=== PATIENT | male | born 1965 | race Caucasian/White ===

== ENCOUNTER 2022-09-25 08:37 | Emergency (ER) | payer BC, SELFPAY ==
[2022-09-25] VITALS (26 sets, daily range): BP systolic 151–214; BP diastolic 90–127; PULSE 72–93; RESP 18; TEMP 36.1; O2SAT 91–94; BMI 32.1
--- NOTE | 2022-09-25 09:11 | ED.DIZZY ---
HPI - Dizziness General Time Seen by Provider: 09:11 Date Seen: 09/25/22 Chief Complaint: Dizziness/Vertigo Stated Complaint: vertigo Time Seen by Provider: 09/25/22 09:11 Source: patient, RN notes reviewed and old records reviewed Mode of arrival: ambulatory Limitations: no limitations Related Data Home Medications Medication Instructions Recorded Confirmed amlodipine 10 mg tablet 10 mg PO DAILY 09/25/22 09/25/22 atorvastatin 40 mg tablet 40 mg PO DAILY 09/25/22 09/25/22 metoprolol succinate 50 mg 50 mg PO DAILY 09/25/22 09/25/22 tablet,extended release 24 hr Previous Rx's Medication Instructions Recorded meclizine 12.5 mg tablet 12.5 mg PO TID PRN #30 tabs 09/25/22 Allergies Allergy/AdvReac Type Severity Reaction Status Date / Time No Known Drug Allergies Allergy Verified 09/25/22 08:48 PFSH PFSH Social History Smoking Status: Unknown if ever smoked Do you use any of these nicotine containing products: None How often do you have a drink containing alcohol: 2-4 times a month AUDIT-C Alcohol total score: 2 Exam Const: Vital Signs, click to edit/add: Vital Signs - 24 hr 09/25/22 08:45 09/25/22 09:54 09/25/22 09:55 Temperature 97.0 F L Pulse Rate 85 82 Pulse Rate [Right Pulse Oximeter] 93 Respiratory Rate 18 Blood Pressure 191/111 H Blood Pressure [Ri ght Upper Arm] 161/102 H Pulse Oximetry 94 94 94 Oxygen Delivery Me thod Room Air 09/25/22 10:00 09/25/22 10:02 09/25/22 10:07 Temperature Pulse Rate 85 86 79 Pulse Rate [Right Pulse Oximeter] Respiratory Rate Blood Pressure 196/118 H 180/100 H Blood Pressure [Ri ght Upper Arm] Pulse Oximetry 93 93 92 Oxygen Delivery Me thod 09/25/22 10:15 09/25/22 10:17 09/25/22 10:23 Temperature Pulse Rate 85 82 83 Pulse Rate [Right Pulse Oximeter] Respiratory Rate Blood Pressure 214/127 H 185/91 H Blood Pressure [Ri ght Upper Arm] Pulse Oximetry 92 93 94 Oxygen Delivery Me thod 09/25/22 10:30 09/25/22 10:32 09/25/22 10:45 Temperature Pulse Rate 84 72 75 Pulse Rate [Right Pulse Oximeter] Respiratory Rate Blood Pressure 172/96 H Blood Pressure [Ri ght Upper Arm] Pulse Oximetry 93 93 91 Oxygen Delivery Me thod 09/25/22 10:47 09/25/22 10:48 09/25/22 11:35 Temperature Pulse Rate 74 82 88 Pulse Rate [Right Pulse Oximeter] Respiratory Rate Blood Pressure 179/96 H Blood Pressure [Ri ght Upper Arm] Pulse Oximetry 92 91 92 Oxygen Delivery Me thod 09/25/22 11:45 09/25/22 11:47 09/25/22 11:48 Temperature Pulse Rate 77 80 86 Pulse Rate [Right Pulse Oximeter] Respiratory Rate Blood Pressure 183/115 H Blood Pressure [Ri ght Upper Arm] Pulse Oximetry 92 92 92 Oxygen Delivery Me thod 09/25/22 12:00 09/25/22 12:02 09/25/22 12:15 Temperature Pulse Rate 92 87 92 Pulse Rate [Right Pulse Oximeter] Respiratory Rate Blood Pressure 151/90 H Blood Pressure [Ri ght Upper Arm] Pulse Oximetry 93 93 93 Oxygen Delivery Me thod 09/25/22 12:16 09/25/22 12:30 09/25/22 12:32 Temperature Pulse Rate 90 91 90 Pulse Rate [Right Pulse Oximeter] Respiratory Rate Blood Pressure 155/96 H 151/93 H Blood Pressure [Ri ght Upper Arm] Pulse Oximetry 93 92 92 Oxygen Delivery Me thod 09/25/22 12:45 09/25/22 12:47 Temperature Pulse Rate 90 90 Pulse Rate [Right Pulse Oximeter] Respiratory Rate Blood Pressure 163/99 H Blood Pressure [Ri ght Upper Arm] Pulse Oximetry 94 93 Oxygen Delivery Me thod Course Reevaluation(s) Reevaluation #1: My colleague received a call at approximately [address] was negative. Patient returns to his room and Hallpike maneuver is negative with no evidence of nystagmus or induced vertigo. Patient states that he is tired but he has had resolution of his symptoms. Feels that he is walking normally again. I spoke to neurologist and patient feels that his symptoms have resolved as his exam is reassuring as well. He is fatigued at this time. MRI MRA of brain suggested and is pending. Reevaluation #2: Patient noted to have slight return of dizziness and associated with a blood pressure of greater than 200/115. Ativan 0.5 mg IV is given and patient has resolution of symptoms as well as reduction of blood pressure to 185 systolic. Will continue to monitor. Aspirin 325 mg p.o. given Reevaluation #3: Patient is fatigued but continues to do well. Blood pressure continues to come down. Vital Signs Vital signs: Initial Vital Signs Temperature 97.0 F L 09/25/22 08:45 Temperature Source Temporal Artery Scan 09/25/22 08:45 Pulse Rate 93 09/25/22 08:45 Respiratory Rate 18 09/25/22 08:45 Blood Pressure 161/102 H 09/25/22 08:45 Blood Pressure Mean 121 H 09/25/22 08:45 Blood Pressure Position Sitting 09/25/22 08:45 Pulse Oximetry 94 09/25/22 08:45 Oxygen Delivery Method Room Air 09/25/22 08:45 Vital Signs Temperature 97.0 F L 09/25/22 08:45 Pulse Rate 93 09/25/22 08:45 Respiratory Rate 18 09/25/22 08:45 Blood Pressure 161/102 H 09/25/22 08:45 Pulse Oximetry 94 09/25/22 08:45 Oxygen Delivery Method Room Air 09/25/22 08:45 Temperature 97.0 F L 09/25/22 08:45 Pulse Rate 90 09/25/22 12:47 Respiratory Rate 18 09/25/22 08:45 Blood Pressure 163/99 H 09/25/22 12:47 Pulse Oximetry 93 09/25/22 12:47 Oxygen Delivery Method Room Air 09/25/22 08:45 MDM - Dizziness MDM Narrative Medical decision making narrative: 1. Dizziness with vomiting-CT/CTA and MRI/MRA showed no evidence of a stroke. Patient had improvement of his symptoms prior to his arrival. What was described as a wide-based gait and difficulty with vision had since resolved. Symptoms mildly present at 645 in the shower but intensified at approximately 0730 with persisting symptoms for approximately an hour. Fortunately is a have resolved. Patient did receive aspirin. I suspect this may have been TIA but certainly inner ear dysfunction is a possibility. I was able to consult with , [facility] during the patient's stay in the ED. at this time he will be discharged from the ER but given that he is high risk for future stroke, cardiac disease with tobacco use, hypertension and hyperlipidemia do suggest starting baby aspirin daily. Meclizine 12.5 mg to be use as needed also sent to the pharmacy. Patient is to return for worsening symptoms. 2. Hypertension -blood pressure did come down but not to text perk normal values. Patient has just had some changes of his medications. Currently he takes metoprolol and amlodipine. I would suggest follow-up with his primary MD later in this week and during the interim to take blood pressure checks. He may need a 3rd medication verses changes and what he is currently on. 3. Disposition-home at this time. Return for worsening symptoms. Dictation done with voice recognition, and as a result, wrong word or [id number] substitutions may have occurred.? There may be errors in the script that have gone undetected.? Please consider this when interpreting information found in this chart. Medical Records Attestation: I reviewed the patient's medical records. Lab Data Attestation: I reviewed the patient's lab results. Labs: Lab Results 09/25/22 09/25/22 Range/Units 09:40 12:00 WBC 7.35 (4.50-11.00) K/uL RBC 5.13 (4.30-5.90) m/uL Hgb 16.3 (13.5-17.5) gm/dL Hct 49.2 (37.0-53.0) % MCV 96 (80-100) fL MCH 32 (26-34) pg MCHC 33 (32-36) gm/dL RDW Coeff of Amelia 12.5 (11.5-15.5) % Plt Count 252 (140-440) K/uL Neut % (Auto) 80.6 H (42.0-72.0) % Lymph % (Auto) 9.9 L (20-44) % [place] % (Auto) 6.5 (0.0-11.0) % Eos % (Auto) 2.2 (0.0-7.0) % Baso % (Auto) 0.5 (0.0-3.0) % Neut # (Auto) 5.90 (1.7-7.0) K/uL Lymph # (Auto) 0.70 L (0.90-2.90) K/uL [place] # (Auto) 0.50 (0.00-0.90) K/UL Eos # (Auto) 0.16 (0.00-0.50) K/uL Baso # (Auto) 0.04 (0.00-0.30) K/uL Sodium 140 (135-149) mmol/L Potassium 4.0 (3.6-5.1) mmol/L Chloride 104 (96-114) mmol/L Carbon Dioxide 27 (20-32) mmol/L BUN 10 (7-30) mg/dL Creatinine 0.8 (0.5-1.5) mg/dL Estimated Creat Clear 111.12 Estimated GFR 105 ml/min Glucose 139 H (60-115) mg/dL Calcium 8.6 (8.4-10.6) mg/dL Total Bilirubin 0.4 (0.1-1.5) mg/dL AST 25 (12-35) U/L ALT 32 (4-50) U/L Alkaline Phosphatase 86 (40-150) U/L Total Protein 7.4 (6.0-8.3) g/dL Albumin 4.3 (3.3-5.0) g/dL POC Troponin I 0.00 L 0.00 L (0.01-0.04) ng/ml Imaging Data CT scan - head: Attestation: I have reviewed the pertinent imaging results. My impression: Do not note any evidence of bleeding. Radiologist's impression: Brain parenchyma: No intracranial bleed or mass effect. Roper-white differentiation is distinct. Small amount of low density in the deep white matter. Skull base and calvarium: The visualized paranasal sinuses and mastoid air cells demonstrate no acute or significant findings.? The visualized orbits are grossly unremarkable.? No skull fractures. Atherosclerosis. IMPRESSION: 1. No intracranial bleed or mass effect. 2. Mild nonspecific white matter disease, likely microangiopathy. CTA Head/Neck: Attestation: I have reviewed the pertinent imaging results. Radiologist's impression: There is scattered intracranial atherosclerotic disease. There is normal opacification of the intracranial vasculature. There is no large vessel occlusion. No aneurysm is identified. IMPRESSION: No large vessel occlusion. here is minor carotid atherosclerosis. There is no significant carotid artery stenosis or dissection. There is no significant vertebral artery stenosis or dissection. The soft tissues of the neck are within normal limits. The cervical spine is in normal alignment. Degenerative changes are noted in the cervical spine. IMPRESSION: No significant carotid or vertebral artery stenosis or dissection. MR Brain: Attestation: I have reviewed the pertinent imaging results. Radiologist's impression: The ventricles and sulci are within normal limits for patient age. No mass effect or midline shift. Scattered FLAIR hyperintensities in the supratentorial white matter are nonspecific. No diffusion restriction to suggest acute infarction. No intracranial hemorrhage or pathologic extra-axial fluid collection. The major arterial flow voids of the skullbase are preserved. The globes are symmetric. Minimal ethmoid sinus mucosal thickening. The mastoid air cells are clear. IMPRESSION: 1. No acute infarction, mass effect, or intracranial hemorrhage. 2. Scattered FLAIR hyperintensities in the supratentorial white matter are nonspecific, though most typical for sequelae of mild chronic microvascular ischemic changes or migraine headaches. ECG Data Attestation: I personally reviewed and interpreted this ECG as follows: ECG interpretation date: 09/25/22 Interpretation: EKG by my read shows sinus rhythm at a rate of 85. No acute ST or T-wave changes are noted. EKG 2. By my read shows sinus rhythm at a rate of 81. No acute ST or T-wave changes. Discharge Plan Discharge Clinical Impression: Dizziness, Hypertension Patient Disposition: Home, Self-Care Additional Instructions: Use baby aspirin or 81 mg daily. Smoking cessation is suggested strongly. Return to the emergency room for worsening symptoms. Meclizine may be used as needed for dizziness. Prescriptions: New meclizine 12.5 mg tablet 12.5 mg PO TID PRNQty: 30 0RF No Action atorvastatin 40 mg tablet 40 mg PO DAILY metoprolol succinate 50 mg tablet extended release 24 hr 50 mg PO DAILY amlodipine 10 mg tablet 10 mg PO DAILY Follow Up/Referrals: Elmer Humphrey MD [Staff Physician] - Stand Alone Forms: [facility] Info Instructions
--- NOTE | 2022-09-25 09:20 | CRLHL7_ITS ---
For Patients: As a result of the Century Cures Act, medical imaging exams and procedure reports are released immediately into your electronic medical record. You may view this report before your referring provider. If you have questions, please contact your health care provider. INDICATION: Vertigo, nausea and vomiting TECHNIQUE: CT head without contrast. COMPARISON: None. FINDINGS: CSF spaces: Within normal limits for age. Brain parenchyma: No intracranial bleed or mass effect. Roper-white differentiation is distinct. Small amount of low density in the deep white matter. Skull base and calvarium: The visualized paranasal sinuses and mastoid air cells demonstrate no acute or significant findings. The visualized orbits are grossly unremarkable. No skull fractures. Atherosclerosis. IMPRESSION: 1. No intracranial bleed or mass effect. 2. Mild nonspecific white matter disease, likely microangiopathy. Results called to Dr. Tai at 0945 on 09/25/2022 Please note that all CT scans at this facility use dose modulation, iterative reconstruction, and/or weight-based dosing when appropriate to reduce radiation dose to as low as reasonably achievable. Dictated by Lavell Bardales MD @ 09/25/2022 9:46:52 AM (Electronically Signed)
--- NOTE | 2022-09-25 09:29 | CRLHL7_ITS ---
For Patients: As a result of the Century Cures Act, medical imaging exams and procedure reports are released immediately into your electronic medical record. You may view this report before your referring provider. If you have questions, please contact your health care provider. INDICATION: Vertigo, nausea and vomiting. TECHNIQUE: CTA neck with contrast bolus tracking, 3D angiographic rendering using maximum intensity projection (MIP). FINDINGS: There is minor carotid atherosclerosis. There is no significant carotid artery stenosis or dissection. There is no significant vertebral artery stenosis or dissection. The soft tissues of the neck are within normal limits. The cervical spine is in normal alignment. Degenerative changes are noted in the cervical spine. IMPRESSION: No significant carotid or vertebral artery stenosis or dissection. Please note that all CT scans at this facility use dose modulation, iterative reconstruction, and/or weight-based dosing when appropriate to reduce radiation dose to as low as reasonably achievable. Dictated by Joaquin Nieto MD @ 09/25/2022 10:38:37 AM (Electronically Signed)
--- NOTE | 2022-09-25 09:29 | CRLHL7_ITS ---
For Patients: As a result of the Century Cures Act, medical imaging exams and procedure reports are released immediately into your electronic medical record. You may view this report before your referring provider. If you have questions, please contact your health care provider. INDICATION: Vertigo, nausea and vomiting. TECHNIQUE: CTA head with contrast bolus tracking, 3D angiographic rendering using maximum intensity projection (MIP). FINDINGS: There is scattered intracranial atherosclerotic disease. There is normal opacification of the intracranial vasculature. There is no large vessel occlusion. No aneurysm is identified. IMPRESSION: No large vessel occlusion. Please note that all CT scans at this facility use dose modulation, iterative reconstruction, and/or weight-based dosing when appropriate to reduce radiation dose to as low as reasonably achievable. Dictated by Joaquin Nieto MD @ 09/25/2022 10:37:04 AM (Electronically Signed)
[2022-09-25 10:11] LABS: Basophils Absolute Auto 0.04 K/uL (0.00-0.30); Basophils Percent Auto 0.5 % (0.0-3.0); Eosinophils Absolute Auto 0.16 K/uL (0.00-0.50); Eosinophils Percent Auto 2.2 % (0.0-7.0); Hematocrit 49.2 % (37.0-53.0); Hemoglobin* 16.3 gm/dL (13.5-17.5); Immature Granulocytes Abs Auto 0.02 K/uL (0.00-0.30); Immature Granulocytes Pct Auto 0.3 %; Lymphocytes Percent Auto 9.9 % (20-44); Mean Corpuscular HGB Conc 33 gm/dL (32-36); Mean Corpuscular Hemoglobin 32 pg (26-34); Mean Corpuscular Volume 96 fL (80-100); Monocytes Percent Auto 6.5 % (0.0-11.0); Neutrophils Percent Auto 80.6 % (42.0-72.0); Platelet Count* 252 K/uL (140-440); RDW Coefficient of Variation % 12.5 % (11.5-15.5); Red Blood Count 5.13 m/uL (4.30-5.90); White Blood Count* 7.35 K/uL (4.50-11.00)
[2022-09-25 10:12] LABS: Albumin* 4.3 g/dL (3.3-5.0); Chloride* 104 mmol/L (96-114); Slide Review Reflex No; Sodium* 140 mmol/L (135-149)
[2022-09-25 10:14] LABS: Bilirubin Total* 0.4 mg/dL (0.1-1.5); Carbon Dioxide* 27 mmol/L (20-32); Creatinine* 0.8 mg/dL (0.5-1.5); Est. Creatinine Clearance* 111.12; Estimated Glomerular Filt Rate 105 ml/min
[2022-09-25 10:15] LABS: Alanine Aminotransferase* 32 U/L (4-50); Alkaline Phosphatase* 86 U/L (40-150); Aspartate Amino Transferase* 25 U/L (12-35); Blood Urea Nitrogen* 10 mg/dL (7-30); Calcium* 8.6 mg/dL (8.4-10.6); Glucose* 139 mg/dL (60-115); Total Protein* 7.4 g/dL (6.0-8.3)
[2022-09-25] MEDS: LORazepam 2 MG/ML inj 0.5 MG IVP (10:17)
--- NOTE | 2022-09-25 10:17 | CRLHL7_ITS ---
For Patients: As a result of the Century Cures Act, medical imaging exams and procedure reports are released immediately into your electronic medical record. You may view this report before your referring provider. If you have questions, please contact your health care provider. INDICATION: Dizziness. TECHNIQUE: Multiplanar multisequence noncontrast MR images acquired through the brain. COMPARISON: CT brain 09/25/2022. FINDINGS: The ventricles and sulci are within normal limits for patient age. No mass effect or midline shift. Scattered FLAIR hyperintensities in the supratentorial white matter are nonspecific. No diffusion restriction to suggest acute infarction. No intracranial hemorrhage or pathologic extra-axial fluid collection. The major arterial flow voids of the skullbase are preserved. The globes are symmetric. Minimal ethmoid sinus mucosal thickening. The mastoid air cells are clear. IMPRESSION: 1. No acute infarction, mass effect, or intracranial hemorrhage. 2. Scattered FLAIR hyperintensities in the supratentorial white matter are nonspecific, though most typical for sequelae of mild chronic microvascular ischemic changes or migraine headaches. Dictated by Odell Bello MD @ 09/25/2022 11:35:50 AM (Electronically Signed)
[2022-09-25] MEDS: ASPIRIN 81 MG TAB.CHEW 324 MG PO (10:18)
== END 2022-09-25 12:58 | disposition home or self-care (01) ==
PROVIDERS: Emergency Provider Family Medicine; PCP Physician Assistant
DX: R42 Dizziness and giddiness (principal); I10 Essential (primary) hypertension
CPT/HCPCS: 36415; 70450; 70496; 70498; 70551; 80053; 84484; 85025; 93005; 96374; 99284; 99285; A9270; J2060; Q9967

== ENCOUNTER 2023-02-09 08:02 | Day surgery (SDC) | payer BC, SELFPAY ==
[2023-02-09] VITALS (13 sets, daily range): BP systolic 94–127; BP diastolic 67–82; PULSE 63–83; RESP 16–20; TEMP 36.1–36.8; O2SAT 88–94; BMI 32.1
[2023-02-09] MEDS: LACTATED RINGERS 1000 ML 1,000 ML 100 ML IV ×2 (08:05→12:00)
[2023-02-09] MEDS: SODIUM CHLORIDE 0.9 % (FLUSH) 10 ML SYRINGE IVF (08:42)
--- NOTE | 2023-02-09 09:17 | P.ORPRC_ITS ---
Procedure Note Date of procedure: 02/09/23 Procedure: PREOPERATIVE DIAGNOSES: 1. Left ankle lateral malleolus fracture 2. Left ankle posterior malleolus fracture POSTOPERATIVE DIAGNOSES: 1. Left ankle lateral malleolus fracture 2. Left ankle posterior malleolus fracture PROCEDURE: 1. Left ankle lateral malleolus open reduction with internal fixation. 2. Intraoperative fluoroscopy <53 minutes (CPT CODE 7600) SURGEON: Murphy Son MD SWIMMING TEACHER: Jorge OBRIEN; Of note, an computer assistant was critical for this case to aide in patient positioning, leg manipulation, tissue retraction, closure, and splinting. ANESTHESIA: Spinal with popliteal nerve block IMPLANTS: Arthrex 4 hole distal fibular locking plate with 2.5 mm distal locking screws and 3.5 mm cortical screws. TOURNIQUET: 32 minutes at 250 mmHg. INDICATIONS: The patient is a pleasant 57-year-old male who sustained a left ankle injury in the recent past with difficulty bearing weight. Workup included x-rays which revealed an unstable ankle fracture. Given these findings, surgery was recommended to stablize the ankle. FINDINGS: Closed, displaced, unstable, Ahumada B distal fibula fracture. Minimally displaced posterior malleolus fracture. Intact syndesmosis.. PROCEDURE: Following a thorough discussion of risks, benefits, and alternatives, consent was obtained and the operative extremity was marked. A popliteal nerve was performed by anesthesia staff. The patient was brought to the operating room and and spinal anesthesia was administered. He was then placed supine on the operating table. 2 g IV Ancef was administered within 1 hour of incision preoperatively. The left lower extremity was prepped and draped in the appropriate sterile fashion using ChloraPrep prep. A surgical time-out was performed confirming patient identity, surgical site, and surgical procedure. The operative extremity was elevated and exsanguinated, and the tourniquet inflated to 250 mm Hg. A longitudinal incision was made overlying the distal fibula. Sharp incision was carried through skin and subcutaneous tissue. Superficial peroneal nerve was identified exiting the fascia and was protected throughout the course of the procedure. The fracture was identified, and cleared of interposed p eriosteum and fracture hematoma. The surgical site was thoroughly irrigated with normal saline. The fracture was reduced and temporarily held with reduction clamps. An Arthrex distal fibular locking plate was selected and held provisionally with a BB [place]. After confirming appropriate reduction/positioning on C-arm fluoroscopic imaging, the fracture was stabilized with the plate. Unicortical locking screws were placed distal to the fracture site and 3 bicortical 3.5 mm screws were placed proximal to the fracture site through the plate. Fluoroscopy was utilized for confirmation of screw length / positioning. After the fracture was stabilized with a plate and screws, an external stress test was performed and syndesmosis was confirmed to be intact. At this stage, the wound was thoroughly irrigated with normal saline. Deep subcutaenous tissues were closed over the plate with #0 Vicryl. The tourniquet was deflated. Total tourniquet time was 32 minutes. Hemostasis achieved with electrocautery. Subcutaneous tissues were closed with 2-0 Vicryl for the subcutaneous tissues, and 4-0 stratafix for subcuticular layers completed the closure. Exofin was applied, dressings were applied, and a bulky Oh splint was applied. The patient was awoken from anesthesia and transferred to the PACU in stable condition. PLAN: 1. Elevate operative extremity. 2. Encourage ice. 3. Tylenol and oxycodone as needed for pain control. 4. Follow up in orthopedic clinic in 2 weeks for splint removal and wound check. 5. Toe touch weight-bearing operative extremity. 6. Discharge to home.
--- NOTE | 2023-02-09 09:17 | W.PM.H&PU ---
History & Physical Update History & Physical Update H&P Reviewed and patient assessed: No changes noted
--- NOTE | 2023-02-09 10:00 | CRLHL7_ITS ---
For Patients: As a result of the Cures Act, medical imaging exams and procedure reports are released immediately into your electronic medical record. You may view this report before your referring provider. If you have questions, please contact your health care provider. Indication: LT ANKLE ORIF Technique: 4 fluoroscopic images of the left ankle. Fluoroscopic time 9.0 seconds. IMPRESSION: Fluoroscopic guidance of ORIF distal fibular fracture. Dictated by Aneudy Mcclure MD @ 02/09/2023 12:27:31 PM (Electronically Signed)
[2023-02-09] MEDS: MIDAZOLAM HCL 1 MG/ML inj IVP (10:10)
[2023-02-09] MEDS: fentaNYL 100 MCG/2 ML inj IVP (10:10)
--- NOTE | 2023-02-09 10:15 | SUR.PREOP ---
TIME?OUT:?1009 PT/Jaqui Dooley RN/Dr. Trevor MDA?VERIFICATION?OF?SURGICAL?SITE left ankle,?PROCEDURE,?AND?CONSENT OBTAINED?PRIOR?TO?INVASIVE?PROCEDURE.
--- NOTE | 2023-02-09 10:31 | W.PM.NB ---
Nerve Block Nerve Block Time Seen by Provider: 10:10 Date Seen: 02/09/23 Type of block requested by surgeon for post-operative analgesia: popliteal Side: left Time out performed: Yes Verification of patient name: Yes Verification of date of : Yes Site marking: site marked Name of person performing procedure: Trevor Continuous monitoring Was continuous monitoring of O2 sat, B/P, bus driver/monitor, recorded every 15 minutes?: Yes Procedure Checklist: sterile prep, needles and gloves Ultrasound guided. Images saved: Yes Medications given in 5ml increments after negative aspiration: Ropivicaine %: 0.5 mL: 20 Needle gauge: 22 Patient tolerated procedure well: Yes Additional comments: Needle noted adjacent to nerve Block Charges Block Charge (with Pro Fee): Sciatic Nerve Use of Ultrasound Machine for Block: Yes- US Guidance/pain block
--- NOTE | 2023-02-09 10:32 | W.ANESCHARGE ---
Anesthesia Charges Start Date/Time Anesthesia Start Date: 02/09/23 Anesthesia Start Time: 11:04 Stop Date/Time Anesthesia Stop Date: 02/09/23 Anesthesia Stop Time: 12:41
[2023-02-09] MEDS: CEFAZOLIN 2 GM INJ IVP (11:26)
--- NOTE | 2023-02-09 12:11 | W.ANESCHARGE ---
Anesthesia Charges Start Date/Time Anesthesia Start Date: 02/09/23 Anesthesia Start Time: 11:04 Stop Date/Time Anesthesia Stop Date: 02/09/23
--- NOTE | 2023-02-09 12:44 | W.ANESCHARGE ---
Anesthesia Charges Start Date/Time Anesthesia Start Date: 02/09/23 Anesthesia Start Time: 11:04 Stop Date/Time Anesthesia Stop Date: 02/09/23 Anesthesia Stop Time: 12:41
== END 2023-02-09 14:08 | disposition home or self-care (01) ==
PROVIDERS: Visit Provider Orthopaedic Surgery
PROC: (CPT 27814; principal; 2023-02-09 10:00)
DX: S82.842A Displaced bimalleolar fracture of left lower leg, initial encounter for closed fracture (principal); G89.18 Other acute postprocedural pain
CPT/HCPCS: 27814; 01480; 64445; 73600; 76000; 76942; 82962; C1713; J0690; J2250; J2371; J2704; J3010; J7120

== ENCOUNTER 2023-02-26 18:41 | Inpatient (IN) | payer BC, SELFPAY ==
[2023-02-26 18:44] VITALS: BP 138/75; PULSE 81; RESP 18; TEMP 36.7; O2SAT 95; BMI 30.7
--- NOTE | 2023-02-26 19:04 | ED_ITS ---
HPI - General Adult General Chief complaint: Skin/Abscess/Foreign Body Stated complaint: Rash post op 2 weeks Time Seen by Provider: 02/26/23 18:47 Source: patient Mode of arrival: ambulatory Limitations: no limitations History of Present Illness HPI narrative: 57-year-old male coming in today complaining about a rash. Patient is 2 weeks postop and ankle surgery. Rash started 5 days ago on his right flank and has been progressively spreading. The rash is very pruritic and uncomfortable but he denies pain. He denies systemic symptoms like fevers or chills. No nausea or vomiting. No changes in his appetite. Patient has not been vaccinated for shingles. Related Data Home Medications Medication Instructions Recorded Confirmed amlodipine 10 mg tablet 10 mg PO DAILY 09/25/22 02/09/23 metoprolol succinate 50 mg 50 mg PO DAILY 09/25/22 02/09/23 tablet,extended release 24 hr albuterol sulfate 90 mcg/actuation 2 puff inhalation QID PRN wheezing 02/06/23 02/09/23 aerosol inhaler budesonide-formoterol HFA 160 2 puff inhalation DAILY 02/06/23 02/09/23 mcg-4.5 mcg/actuation aerosol inhaler (Symbicort) metformin 500 mg tablet 500 mg PO BID 02/06/23 02/09/23 oxycodone-acetaminophen 5 mg-325 1 tab PO Q4H PRN pain 02/06/23 02/09/23 mg tablet rosuvastatin 20 mg tablet 20 mg PO QPM 02/06/23 02/09/23 Previous Rx's Medication Instructions Recorded meclizine 12.5 mg tablet 12.5 mg PO TID PRN #30 tabs 09/25/22 oxycodone 5 mg capsule 5 mg PO Q4H PRN pain (scale score 02/06/23 7-10) #30 caps Allergies Allergy/AdvReac Type Severity Reaction Status Date / Time No Known Drug Allergies Allergy Verified 02/20/23 13:01 Review of Systems Status of ROS: Reports: 10 or more systems reviewed and unremarkable except as noted in History and below [facility] Medical History Mild asthma without complication ?J45.909 - Unspecified asthma, uncomplicated (ICD-10) Stone in kidney ?N20.0 - Calculus of kidney (ICD-10) TIA (transient ischemic attack) ?G45.9 - Transient cerebral ischemic attack, unspecified (ICD-10) Diabetes ?E11.9 - Type 2 diabetes mellitus without complications (ICD-10) High cholesterol ?E78.00 - Pure hypercholesterolemia, unspecified (ICD-10) Hypertension ?I10 - Essential (primary) hypertension (ICD-10) Surgical History Fracture of ankle, lateral malleolus, left, closed ?S82.62XA - Displaced fracture of lateral malleolus of left fibula, initial encounter for closed fracture (ICD-10) Social History Smoking Status: Current every day smoker What tobacco products do you use: cigarettes Smoking packs per day: 1 Smoking cigarettes per day: 20.0 Do you use any of these nicotine containing products: None How often do you have a drink containing alcohol: 2-4 times a month Alcohol type: beer and hard liquor How often do you have six or more drinks on one occasion: Never AUDIT-C Alcohol total score: 2 Non-prescribed substance use: denies use Caffeine: Yes (coffee/pop) service: No Exam Narrative: Exam Narrative: Well-nourished well-developed patient in no acute distress. Alert and oriented. Answers questions appropriately. Mood and affect are appropriate. Thoughts are goal oriented and rational. No tangential or magical thinking noted. Patient speaks in full sentences without needing to catch his breath. HEENT: Normocephalic atraumatic. Pupils are equally round reactive to light. Extraocular muscles are intact. Conjunctivae are moist without any icterus noted. Moist mucous membranes. There is no lesions inside the mouth. Skin: Patient has a vesicular rash starting on the right midback circles around the flank into the right abdomen. Most of the lesions have ruptured and is crust on them. He also has sporadic similar lesions on his right upper arm, bilateral thighs, right shoulder and left nipple. Rash on the left nipple has become confluent and encompasses most of the areola. Const: Vital Signs, click to edit/add: Vital Signs - 24 hr 02/26/23 18:44 Temperature 98.0 F Pulse Rate [Right Pulse Oximeter] 81 Respiratory Rate 18 Blood Pressure [Ri ght Upper Arm] 138/75 Pulse Oximetry 95 Oxygen Delivery Me thod Room Air Course Course ED Course: Lab work unremarkable. Discussed findings with the patient. We discussed that the literature currently recommends hospital admission and IV antivirals until new lesions stop forming. We did discuss the possibility of oral treatment with close followup however, unfortunately the patient does not have a primary care provider and so follow-up would be extremely difficult. Because of these reasons we decided to admit the patient for IV antiviral medication. Dr. hCan graciously accepting the patient for admission. Vital Signs Vital signs: Initial Vital Signs Temperature 98.0 F 02/26/23 18:44 Temperature Source Temporal Artery Scan 02/26/23 18:44 Pulse Rate 81 02/26/23 18:44 Respiratory Rate 18 02/26/23 18:44 Blood Pressure 138/75 02/26/23 18:44 Blood Pressure Mean 96 02/26/23 18:44 Blood Pressure Position Sitting 02/26/23 18:44 Pulse Oximetry 95 02/26/23 18:44 Oxygen Delivery Method Room Air 02/26/23 18:44 Vital Signs Temperature 98.0 F 02/26/23 18:44 Pulse Rate 81 02/26/23 18:44 Respiratory Rate 18 02/26/23 18:44 Blood Pressure 138/75 02/26/23 18:44 Pulse Oximetry 95 02/26/23 18:44 Oxygen Delivery Method Room Air 02/26/23 18:44 Temperature 98.0 F 02/26/23 18:44 Pulse Rate 81 02/26/23 18:44 Respiratory Rate 18 02/26/23 18:44 Blood Pressure 138/75 02/26/23 18:44 Pulse Oximetry 95 02/26/23 18:44 Oxygen Delivery Method Room Air 02/26/23 18:44 Medical Decision Making MDM Narrative Medical decision making narrative: 57-year-old male with disseminated zoster. Patient will be admitted for management. Lab Data Lab results reviewed: Yes I reviewed the patient's lab results Labs: Lab Results 02/26/23 Range/Units 19:34 WBC 9.68 (4.50-11.00) K/uL RBC 4.97 (4.30-5.90) m/uL Hgb 15.6 (13.5-17.5) gm/dL Hct 47.4 (37.0-53.0) % MCV 95 (80-100) fL MCH 31 (26-34) pg MCHC 33 (32-36) gm/dL RDW Coeff of Amelia 12.7 (11.5-15.5) % Plt Count 329 (140-440) K/uL Neut % (Auto) 70.6 (42.0-72.0) % Lymph % (Auto) 15.5 L (20-44) % [place] % (Auto) 9.7 (0.0-11.0) % Eos % (Auto) 3.9 (0.0-7.0) % Baso % (Auto) 0.3 (0.0-3.0) % Neut # (Auto) 6.83 (1.7-7.0) K/uL Lymph # (Auto) 1.50 (0.90-2.90) K/uL [place] # (Auto) 0.90 (0.00-0.90) K/UL Eos # (Auto) 0.38 (0.00-0.50) K/uL Baso # (Auto) 0.03 (0.00-0.30) K/uL Abs Immat Gran (auto) 0.00 (0.00-0.30) K/uL Imm/Tot Granulo (auto) 0.0 % Sodium 139 (135-149) mmol/L Potassium 4.3 (3.6-5.1) mmol/L Chloride 101 (96-114) mmol/L Carbon Dioxide 31 (20-32) mmol/L Anion Gap 7 (7-15) mEq/L BUN 12 (7-30) mg/dL Creatinine 0.8 (0.5-1.5) mg/dL Estimated Creat Clear 111.12 Estimated GFR 105 ml/min Glucose 97 (60-115) mg/dL Calcium 10.2 (8.4-10.6) mg/dL Total Bilirubin 0.7 (0.1-1.5) mg/dL Direct Bilirubin 0.1 (0.0-0.5) mg/dL AST 22 (12-35) U/L ALT 24 (4-50) U/L Alkaline Phosphatase 89 (40-150) U/L C-Reactive Protein < 0.5 L (0.5-1.0) mg/dL Total Protein 7.8 (6.0-8.3) g/dL Albumin 4.5 (3.3-5.0) g/dL Discharge Plan Discharge Clinical Impression: Disseminated zoster Patient Disposition: Admitted As Observation Condition: Stable Prescriptions: No Action oxycodone-acetaminophen 5-325 mg tablet 1 tab PO Q4H PRN (Reason: pain) metformin 500 mg tablet 500 mg PO BID rosuvastatin 20 mg tablet 20 mg PO QPM albuterol sulfate 90 mcg/actuation HFA aerosol inhaler 2 puff inhalation QID PRN (Reason: wheezing) budesonide-formoterol [Symbicort] 160-4.5 mcg/actuation HFA aerosol inhaler 2 puff inhalation DAILY oxycodone 5 mg capsule 5 mg PO Q4H PRN (Reason: pain (scale score 7-10)) Qty: 30 0RF metoprolol succinate 50 mg tablet extended release 24 hr 50 mg PO DAILY amlodipine 10 mg tablet 10 mg PO DAILY meclizine 12.5 mg tablet 12.5 mg PO TID PRNQty: 30 0RF Follow Up/Referrals: Provider,Not a Local [Primary Care Provider] -
[2023-02-26 19:44] LABS: Basophils Absolute Auto 0.03 K/uL (0.00-0.30); Basophils Percent Auto 0.3 % (0.0-3.0); Eosinophils Absolute Auto 0.38 K/uL (0.00-0.50); Eosinophils Percent Auto 3.9 % (0.0-7.0); Hematocrit 47.4 % (37.0-53.0); Hemoglobin* 15.6 gm/dL (13.5-17.5); Lymphocytes Percent Auto 15.5 % (20-44); Mean Corpuscular HGB Conc 33 gm/dL (32-36); Mean Corpuscular Hemoglobin 31 pg (26-34); Mean Corpuscular Volume 95 fL (80-100); Monocytes Percent Auto 9.7 % (0.0-11.0); Neutrophils Absolute Auto 6.83 K/uL (1.7-7.0); Neutrophils Percent Auto 70.6 % (42.0-72.0); Platelet Count* 329 K/uL (140-440); RDW Coefficient of Variation % 12.7 % (11.5-15.5); Red Blood Count 4.97 m/uL (4.30-5.90); White Blood Count* 9.68 K/uL (4.50-11.00)
[2023-02-26 19:48] LABS: Slide Review Reflex No
[2023-02-26 19:57] LABS: Chloride* 101 mmol/L (96-114); Potassium* 4.3 mmol/L (3.6-5.1); Sodium* 139 mmol/L (135-149)
[2023-02-26 19:58] LABS: Albumin* 4.5 g/dL (3.3-5.0)
[2023-02-26 20:00] LABS: Creatinine* 0.8 mg/dL (0.5-1.5); Est. Creatinine Clearance* 111.12; Estimated Glomerular Filt Rate 105 ml/min
[2023-02-26 20:01] LABS: Alkaline Phosphatase* 89 U/L (40-150); Anion Gap 7 mEq/L (7-15); Aspartate Amino Transferase* 22 U/L (12-35); Bilirubin Direct* 0.1 mg/dL (0.0-0.5); Bilirubin Total* 0.7 mg/dL (0.1-1.5); Blood Urea Nitrogen* 12 mg/dL (7-30); Calcium* 10.2 mg/dL (8.4-10.6); Carbon Dioxide* 31 mmol/L (20-32); Glucose* 97 mg/dL (60-115); Total Protein* 7.8 g/dL (6.0-8.3)
[2023-02-26 20:02] LABS: Alanine Aminotransferase* 24 U/L (4-50)
--- NOTE | 2023-02-26 20:03 | ED.NURSE ---
report given to oncoming RN
[2023-02-26 20:04] LABS: C Reactive Protein* < 0.5 mg/dL (0.5-1.0)
[2023-02-26 21:04] VITALS: BP 132/89; PULSE 75; RESP 20; O2SAT 96
--- NOTE | 2023-02-26 21:36 | PM.IMHP1 ---
Hospitalist- H&P: HPI History of Present Illness Date Seen: 02/26/23 Chief complaint: Rash post op 2 weeks Narrative: Demarco Maria is a 57 year old male with past medical history of HTN, HLD, T2Dm, TIA, Asthma presenting for evaluation of shingles. The patient developed a vesicular rash in posterior right back about five days ago. Due to increased pain he presented to ED for further evaluation. In the ED CBC, BMP obtained. He was started on acyclovir. He was subsequently admitted for pain control. Has not had shingles vaccine. Review of Systems Status of ROS: Reports: 10 or more systems reviewed and unremarkable except as noted in History and below [facility] Medical History (Updated 02/26/23 @ 21:42 by Adiel Chan MD) Hypertension ?I10 - Essential (primary) hypertension (ICD-10) Mild asthma without complication ?J45.909 - Unspecified asthma, uncomplicated (ICD-10) Stone in kidney ?N20.0 - Calculus of kidney (ICD-10) TIA (transient ischemic attack) ?G45.9 - Transient cerebral ischemic attack, unspecified (ICD-10) Diabetes ?E11.9 - Type 2 diabetes mellitus without complications (ICD-10) High cholesterol ?E78.00 - Pure hypercholesterolemia, unspecified (ICD-10) Surgical History Fracture of ankle, lateral malleolus, left, closed ?S82.62XA - Displaced fracture of lateral malleolus of left fibula, initial encounter for closed fracture (ICD-10) Social History What is your current living situation?: I presently have a place to live Problems where you live: no known problems Problems where you live details: n/a In the past 12 months, utilities in danger of being shut off: no In past 12 months, lack of transportation kept you from medical appts, meetings, work, or getting things needed for daily living: no In the past 12 mos, have been you worried that your food would run out before you had money to buy more?: never true In the past 12 mos, the food you bought just didn't last and you didn't have money to buy more?: never true Highest level of school completed/degree received: Associate degree: occupational, technical, vocational program Smoking Status: Current every day smoker What tobacco products do you use: cigarettes Smoking packs per day: 1 Smoking cigarettes per day: 20.0 Years smoked: 30 Smoking pack-years: 30.00 Do you use any of these nicotine containing products: None Second hand tobacco smoke exposure: No How often do you have a drink containing alcohol: 2-3 times a week Alcohol type: beer How many standard drinks containing alcohol do you have on a typical day: 3 or 4 How often do you have six or more drinks on one occasion: Monthly AUDIT-C Alcohol total score: 6 Non-prescribed substance use: denies use Caffeine: Yes How often does anyone, including family, friends and others, physically hurt you: never How often does anyone, including family, friends and others, insult or talk down to you: never How often does anyone, including family, friends and others, threaten you with harm: never How often does anyone, including family, friends and others, scream or curse at you: never service: No Meds Home Medications and Allergies Home Medications Medication Instructions Recorded Confirmed Type amlodipine 10 mg tablet 10 mg PO DAILY 09/25/22 02/09/23 History metoprolol succinate 50 mg 50 mg PO DAILY 09/25/22 02/09/23 History tablet,extended release 24 hr albuterol sulfate 90 mcg/actuation 2 puff inhalation QID PRN wheezing 02/06/23 02/09/23 History aerosol inhaler budesonide-formoterol HFA 160 2 puff inhalation DAILY 02/06/23 02/09/23 History mcg-4.5 mcg/actuation aerosol inhaler (Symbicort) metformin 500 mg tablet 500 mg PO BID 02/06/23 02/09/23 History oxycodone-acetaminophen 5 mg-325 1 tab PO Q4H PRN pain 02/06/23 02/09/23 History mg tablet rosuvastatin 20 mg tablet 20 mg PO QPM 02/06/23 02/09/23 History Allergies Allergy/AdvReac Type Severity Reaction Status Date / Time No Known Drug Allergies Allergy Verified 02/20/23 13:01 Exam Narrative: Exam Narrative: Gen: no acute distress HEENT: NCAT EOMI mmm Neck: Supple CV: RRR normal s1 s2 Lungs: CTAB Abd: Soft,nt, nd Neuro: Alert, oriented, CN grossly intact; nonfocal screening?exam Psych: appropriate affect MSK: age appropriate muscle mass Skin; Warm, dry no rash on face Const: Vital Signs, click to edit/add: Vital Signs - 24 hr 02/26/23 18:44 02/26/23 21:04 Temperature 98.0 F Pulse Rate 75 Pulse Rate [Right Pulse Oximeter] 81 Respiratory Rate 18 20 Blood Pressure 132/89 Blood Pressure [Ri ght Upper Arm] 138/75 Pulse Oximetry 95 96 Oxygen Delivery Me thod Room Air Hospitalist - H&P: Result Labs Labs: Short CBC 02/26/23 Range/Units 19:34 WBC 9.68 (4.50-11.00) K/uL Hgb 15.6 (13.5-17.5) gm/dL Hct 47.4 (37.0-53.0) % Plt Count 329 (140-440) K/uL BMP 02/26/23 19:34 Sodium 139 Potassium 4.3 Chloride 101 Carbon Dioxide 31 BUN 12 Creatinine 0.8 Glucose 97 Calcium 10.2 Liver Function 02/26/23 Range/Units 19:34 Total Bilirubin 0.7 (0.1-1.5) mg/dL Direct Bilirubin 0.1 (0.0-0.5) mg/dL AST 22 (12-35) U/L ALT 24 (4-50) U/L Alkaline Phosphatase 89 (40-150) U/L Albumin 4.5 (3.3-5.0) g/dL Assessment and Plan Assessment and plan (1) Disseminated zoster: Status: Acute (2) Hypertension: Status: Acute (3) High cholesterol: Status: Acute (4) TIA (transient ischemic attack): Status: Acute (5) Mild asthma without complication: Status: Acute (6) Diabetes: Status: Acute Plan Demarco Maria is a 57 year old male with past medical history of HTN, HLD, T2Dm, TIA, Asthma presenting for evaluation of shingles. The patient developed a vesicular rash in posterior right back about five days ago. Due to increased pain he presented to ED for further evaluation. In the ED CBC, BMP obtained. He was started on acyclovir. He was subsequently admitted for pain control. Has not had shingles vaccine. 1. Dissemated zooster Plan -admit to obs -IV acyclovir q8h once no new lesions switch to PO -prn gabapentin/oxycodone/lidocaine patch for pain -airborne/contact precautions code-full dvt ppx-obs status
--- NOTE | 2023-02-26 22:08 | ED.NURSE ---
Report given to Tanya at [id number]. Transfered to m/s
[2023-02-26 22:10] VITALS: PULSE 73; RESP 18; TEMP 36.9; O2SAT 93; BMI 30.7
[2023-02-26 23:00] VITALS: BP 142/90; PULSE 76; PULSE 88; RESP 18; TEMP 37; O2SAT 93
[2023-02-27] MEDS: SODIUM CHLORIDE 0.9 % (FLUSH) 10 ML SYRINGE 5 ML IVF ×3 (05:48→21:18)
[2023-02-27 06:10] LABS: Basophils Absolute Auto 0.03 K/uL (0.00-0.30); Basophils Percent Auto 0.3 % (0.0-3.0); Eosinophils Absolute Auto 0.35 K/uL (0.00-0.50); Eosinophils Percent Auto 3.6 % (0.0-7.0); Hematocrit 44.6 % (37.0-53.0); Hemoglobin* 14.6 gm/dL (13.5-17.5); Immature Granulocytes Abs Auto 0.01 K/uL (0.00-0.30); Immature Granulocytes Pct Auto 0.1 %; Lymphocytes Percent Auto 8.9 % (20-44); Mean Corpuscular HGB Conc 33 gm/dL (32-36); Mean Corpuscular Hemoglobin 31 pg (26-34); Mean Corpuscular Volume 96 fL (80-100); Monocytes Percent Auto 9.2 % (0.0-11.0); Neutrophils Percent Auto 77.9 % (42.0-72.0); Platelet Count* 299 K/uL (140-440); RDW Coefficient of Variation % 12.6 % (11.5-15.5); Red Blood Count 4.65 m/uL (4.30-5.90)
[2023-02-27 06:15] LABS: Slide Review Reflex No
[2023-02-27 06:24] LABS: Chloride* 103 mmol/L (96-114); Sodium* 141 mmol/L (135-149)
[2023-02-27 06:27] LABS: Creatinine* 0.9 mg/dL (0.5-1.5); Est. Creatinine Clearance* 98.77; Estimated Glomerular Filt Rate 101 ml/min
[2023-02-27 06:28] LABS: Anion Gap 7 mEq/L (7-15); Blood Urea Nitrogen* 9 mg/dL (7-30); Calcium* 9.9 mg/dL (8.4-10.6); Carbon Dioxide* 31 mmol/L (20-32); Glucose* 109 mg/dL (60-115)
--- NOTE | 2023-02-27 06:32 | PC.NURSE ---
Have cared for patient since 0 and has not been up to the bathroom for my 4 hours. Patient is sleeping
[2023-02-27 08:17] VITALS: BP 125/73; PULSE 79; RESP 14; TEMP 36.7; O2SAT 94
[2023-02-27] MEDS: METOPROLOL SUCCINATE (XL) 50 MG TAB PO (08:59)
[2023-02-27] MEDS: METFORMIN 500 MG TABLET PO ×2 (08:59→21:18)
[2023-02-27] MEDS: ACETAMINOPHEN 325 MG TABLET 650 MG PO (09:04)
--- NOTE | 2023-02-27 10:49 | CRLHL7_ITS ---
For Patients: As a result of the Cures Act, medical imaging exams and procedure reports are released immediately into your electronic medical record. You may view this report before your referring provider. If you have questions, please contact your health care provider. INDICATION: SOB COUGH TECHNIQUE: Chest 1 view COMPARISON: None FINDINGS: Linear density within the left lung base representing atelectasis. Mild bronchial wall thickening in the perihilar lungs. No dense infiltrate. Degenerative changes both shoulders. No pneumothorax or pleural effusion. Cardiac silhouette not enlarged. IMPRESSION: Bilateral perihilar bronchiolitis. Left basilar atelectasis. Dictated by Aneudy Mcclure MD @ 02/27/2023 11:40:48 AM (Electronically Signed)
[2023-02-27 12:40] VITALS: BP 115/71; PULSE 81; RESP 26; TEMP 36.8; O2SAT 93
--- NOTE | 2023-02-27 12:47 | PM.IMPN1 ---
Progress Note: A&P Assessment and plan (1) Disseminated zoster: Problem details: continue IV acyclovir Status: Acute (2) Hypertension: Status: Acute (3) Diabetes: Status: Acute (4) TIA (transient ischemic attack): Status: Acute (5) Mild asthma without complication: Problem details: scheduled nebs; cxr with bronchiolitis Status: Acute (6) High cholesterol: Status: Acute Plan Demarco Maria is a 57 year old male with past medical history of HTN, HLD, T2Dm, TIA, Asthma presenting for evaluation of shingles. The patient developed a vesicular rash in posterior right back about five days ago. Due to increased pain he presented to ED for further evaluation. In the ED CBC, BMP obtained. He was started on acyclovir. He was subsequently admitted for pain control. Has not had shingles vaccine. 1. Dissemated zooster Plan -admit to obs -IV acyclovir q8h once no new lesions switch to PO -prn gabapentin/oxycodone/lidocaine patch for pain -airborne/contact precautions code-full dvt ppx-obs status Time Spent With Patient Total time spent: 30 Subjective Date Seen: 02/27/23 Interval history: patient c/o of cough denies chest pain and sob on room air no acute events overnight Exam Narrative: Exam Narrative: Gen: no acute distress HEENT: NCAT EOMI mmm Neck: Supple CV: RRR normal s1 s2 Lungs: CTAB Abd: Soft,nt, nd Neuro: Alert, oriented, CN grossly intact; nonfocal screening?exam Psych: appropriate affect MSK: age appropriate muscle mass Skin; Warm, dry no rash on face; vesicular resions posterior lumbar spine dermatomal distribution Const: Vital Signs, click to edit/add: Vital Signs - 24 hr 02/26/23 18:44 02/26/23 21:04 02/26/23 22:10 Temperature 98.0 F 98.4 F Pulse Rate 75 Pulse Rate [Pulse Oximeter] 73 Pulse Rate [Right Pulse Oximeter] 81 Respiratory Rate 18 20 18 Blood Pressure 132/89 Blood Pressure [Le ft Arm] Blood Pressure [Ri ght Arm'] Blood Pressure [Ri ght Upper Arm] 138/75 Pulse Oximetry 95 96 93 Oxygen Delivery Me thod Room Air Room Air 02/26/23 22:10 02/26/23 23:00 02/26/23 23:00 Temperature Pulse Rate Pulse Rate [Pulse Oximeter] 76 Pulse Rate [Right Pulse Oximeter] Respiratory Rate 18 18 Blood Pressure Blood Pressure [Le ft Arm] Blood Pressure [Ri ght Arm'] Blood Pressure [Ri ght Upper Arm] Pulse Oximetry 93 93 Oxygen Delivery Mi thod Room Air 02/26/23 23:00 02/27/23 08:17 02/27/23 08:17 Temperature 98.6 F 98.1 F Pulse Rate Pulse Rate [Pulse Oximeter] 88 79 Pulse Rate [Right Pulse Oximeter] Respiratory Rate 18 14 Blood Pressure Blood Pressure [Le ft Arm] 142/90 H Blood Pressure [Ri ght Arm'] 125/73 Blood Pressure [Ri ght Upper Arm] Pulse Oximetry 93 94 94 Oxygen Delivery Mi thod Room Air Room Air 02/27/23 08:17 02/27/23 12:40 Temperature 98.2 F Pulse Rate Pulse Rate [Pulse Oximeter] 79 81 Pulse Rate [Right Pulse Oximeter] Respiratory Rate 14 26 H Blood Pressure Blood Pressure [Le ft Arm] Blood Pressure [Ri ght Arm'] 115/71 Blood Pressure [Ri ght Upper Arm] Pulse Oximetry 93 Oxygen Delivery Mi thod Room Air Labs Labs: Laboratory Results - last 24 hr 02/26/23 02/27/23 19:34 05:50 WBC 9.68 9.70 RBC 4.97 4.65 Hgb 15.6 14.6 Hct 47.4 44.6 MCV 95 96 MCH 31 31 MCHC 33 33 RDW Coeff of Amelia 12.7 12.6 Plt Count 329 299 Neut % (Auto) 70.6 77.9 H Lymph % (Auto) 15.5 L 8.9 L [place] % (Auto) 9.7 9.2 Eos % (Auto) 3.9 3.6 Baso % (Auto) 0.3 0.3 Neut # (Auto) 6.83 7.60 H Lymph # (Auto) 1.50 0.90 [place] # (Auto) 0.90 0.90 Eos # (Auto) 0.38 0.35 Baso # (Auto) 0.03 0.03 Abs Immat Gran (auto) 0.00 0.01 Imm/Tot Granulo (auto) 0.0 0.1 Sodium 139 141 Potassium 4.3 4.0 Chloride 101 103 Carbon Dioxide 31 31 Anion Gap 7 7 BUN 12 9 Creatinine 0.8 0.9 Estimated Creat Clear 111.12 98.77 Estimated GFR 105 101 Glucose 97 109 Calcium 10.2 9.9 Total Bilirubin 0.7 Direct Bilirubin 0.1 AST 22 ALT 24 Alkaline Phosphatase 89 C-Reactive Protein < 0.5 L Total Protein 7.8 Albumin 4.5
[2023-02-27] MEDS: IPRAT-ALBUT 0.5-2.5 MG/3 ML NEB 1 NEB IH ×2 (15:07→21:18)
--- NOTE | 2023-02-27 15:31 | PC.NURSE ---
End of Shift: Patient pleasant and cooperative. Patient vitally stable, lungs course, BS WNL, IV currently running acyclovir. Patient declines pain, and has not asked for pain medication. Patient is with cold and cough, patient reports productive cough with green sputum. Patient independent in room, urinating, and had 1 BM.
[2023-02-27 16:45] VITALS: BP 126/77; PULSE 94; RESP 20; TEMP 36.8; O2SAT 92
[2023-02-27 19:05] VITALS: BP 144/79; PULSE 86; RESP 18; TEMP 36.9; O2SAT 92
[2023-02-27] MEDS: BENZONATATE 100 MG CAPSULE PO (21:22)
--- NOTE | 2023-02-27 22:46 | PC.NURSE ---
Shift [id number]- Patient is up ad nasir. Boot in place to right leg. He denies pain, though complains of cough, congestion, runny nose. Appetite intact. He naps in bed on and off throughout shift. He is encouraged to use incentive spirometer independently.
[2023-02-27] MEDS: GUAIF/DM 200-20 MG/20 ML 118 ML LIQUID PO (22:54)
[2023-02-27 23:00] VITALS: BP 120/60; PULSE 88; RESP 18; TEMP 37; O2SAT 91
[2023-02-28 03:00] VITALS: PULSE 78; RESP 20; O2SAT 92
[2023-02-28] MEDS: SODIUM CHLORIDE 0.9 % (FLUSH) 10 ML SYRINGE 5 ML IVF (05:26)
[2023-02-28] MEDS: BENZONATATE 100 MG CAPSULE PO (05:37)
[2023-02-28] MEDS: ACETAMINOPHEN 325 MG TABLET 650 MG PO (05:37)
--- NOTE | 2023-02-28 07:04 | PC.NURSE ---
SHIFT NOTE : Pt is fatigued, up independent in room, A&O, pleasant. His biggest complain is his cough, PRN medications given see eMAR. Room air with O2 sats in the low 90's. Afebrile. Denies pain.
[2023-02-28 07:45] VITALS: O2SAT 98
[2023-02-28 08:21] VITALS: BP 125/77; PULSE 81; RESP 20; TEMP 36.5; O2SAT 98
[2023-02-28 08:39] VITALS: BP 129/58; PULSE 78; RESP 20; TEMP 37.1; O2SAT 95
[2023-02-28] MEDS: METFORMIN 500 MG TABLET PO (09:57)
[2023-02-28] MEDS: METOPROLOL SUCCINATE (XL) 50 MG TAB PO (09:57)
[2023-02-28] MEDS: IPRAT-ALBUT 0.5-2.5 MG/3 ML NEB 1 NEB IH (09:58)
--- NOTE | 2023-02-28 10:10 | PM.DS1 ---
DS: Providers Provider Date Seen: 02/28/23 Date of admission: 02/27/23 08:47 Primary care physician: Not a Local Provider Admitting Clinician: Adiel Chan MD Attending Physician on discharge: Adiel Chan MD Date of Discharge: 02/28/23 DS: Diagnosis Discharge Diagnosis (1) Disseminated zoster: Status: Acute Problem details: continue IV acyclovir (2) Hypertension: Status: Acute (3) Diabetes: Status: Acute (4) TIA (transient ischemic attack): Status: Acute (5) Mild asthma without complication: Status: Acute Problem details: scheduled nebs; cxr with bronchiolitis DS: Summary Hospital Course Hospital Course: Demarco Maria is a 57 year old male with past medical history of HTN, HLD, T2Dm, TIA, Asthma presenting for evaluation of shingles. The patient developed a vesicular rash in posterior right back about five days ago. Due to increased pain he presented to ED for further evaluation. In the ED CBC, BMP obtained. He was started on acyclovir. He was subsequently admitted for pain control. Has not had shingles vaccine. 1. Dissemated zooster Plan -admit to obs -IV acyclovir q8h once no new lesions switch to PO -prn gabapentin/oxycodone/lidocaine patch for pain -airborne/contact precautions At discharge switched to valacyclovir. Instructed for post hospital follow up in 5 days for discussion of shingles vaccine and routine post hospital follow up. Time Spent with Patient Time attestation: Total time spent providing and/or coordinating discharge services: Exam Narrative: Exam Narrative: Gen: no acute distress HEENT: NCAT EOMI mmm Neck: Supple CV: RRR normal s1 s2 Lungs: CTAB Abd: Soft,nt, nd Neuro: Alert, oriented, CN grossly intact; nonfocal screening?exam Psych: appropriate affect MSK: age appropriate muscle mass Skin; Warm, dry no rash on face; vesicular resions posterior lumbar spine dermatomal distribution Const: Vital Signs, click to edit/add: Vital Signs - 24 hr 02/27/23 12:40 02/27/23 16:45 02/27/23 16:45 Temperature 98.2 F 98.2 F Pulse Rate [Pulse Oximeter] 81 94 Respiratory Rate 26 H 20 Blood Pressure [Ri ght Arm'] 115/71 126/77 Pulse Oximetry 93 92 92 Oxygen Delivery Me thod Room Air 02/27/23 19:05 02/27/23 23:00 02/27/23 23:00 Temperature 98.4 F Pulse Rate [Pulse Oximeter] 86 88 Respiratory Rate 18 18 Blood Pressure [Ri ght Arm'] 144/79 H Pulse Oximetry 92 91 Oxygen Delivery Me thod 02/27/23 23:00 02/28/23 03:00 02/28/23 08:21 Temperature 98.6 F 97.7 F Pulse Rate [Pulse Oximeter] 88 78 81 Respiratory Rate 18 20 20 Blood Pressure [Ri ght Arm'] 120/60 125/77 Pulse Oximetry 91 92 98 Oxygen Delivery Me thod Room Air Room Air Room Air 02/28/23 08:39 Temperature 98.8 F Pulse Rate [Pulse Oximeter] 78 Respiratory Rate 20 Blood Pressure [Ri ght Arm'] 129/58 L Pulse Oximetry 95 Oxygen Delivery Me thod Room Air Discharge Plan Discharge Disposition: Home, Self-Care Date of Admission: 02/27/23 08:47 Attending Provider on Discharge: Adiel Chan Primary Care Provider: Provider,Not a Local Condition: Stable Anticipated Discharge Date/Time: 02/28/23 10:03 Discharge Medications: New valacyclovir 1 gram tablet 1,000 mg PO TID Qty: 90 2RF Continued oxycodone-acetaminophen 5-325 mg tablet 1 tab PO Q4H PRN (Reason: pain) metformin 500 mg tablet 500 mg PO BID rosuvastatin 20 mg tablet 20 mg PO QPM albuterol sulfate 90 mcg/actuation HFA aerosol inhaler 2 puff inhalation QID PRN (Reason: wheezing) budesonide-formoterol [Symbicort] 160-4.5 mcg/actuation HFA aerosol inhaler 2 puff inhalation DAILY oxycodone 5 mg capsule 5 mg PO Q4H PRN (Reason: pain (scale score 7-10)) Qty: 30 0RF metoprolol succinate 50 mg tablet extended release 24 hr 50 mg PO DAILY amlodipine 10 mg tablet 10 mg PO DAILY meclizine 12.5 mg tablet 12.5 mg PO TID PRNQty: 30 0RF Discharge Orders: Discharge Order (Routine); Ordered 02/28/23 Ordered By: Adiel Chan Patient Education: Valacyclovir (By mouth), Shingles (DC) Activity Level: Activity as Tolerated Diet Detail: Resume home previous diet Follow Up Appointments: Provider,Not a Local [Primary Care Provider] - 03/07/23 9:45 am (Dr. Ferreira, [facility] ([phone]) SundayMarch 07 at 9:45 am) Forms: [employer] Info Instructions
--- NOTE | 2023-02-28 11:56 | PC.NURSE ---
pt was sent home with 2 doses of medication to get him thru today. per MD Garcia
--- NOTE | 2023-02-28 13:47 | PC.NURSE ---
shift note: noted dry shingles to lt areola and spots to rt breast area. bilat u/e scattered dried shingle patches. upper back has scattered dried shingle patches. pt denies pain but states he's very itchy. Pt instructed to use ice adonis to calm itch. IV dc'd intact lt AC. LS dim with faint crkls to RLL. pt denies sob. Pt encouraged to continue IS q1hr. Reviewed dc instructions and copies sent with pt. Belongings reviewed and sent with pt.
== END 2023-02-28 11:25 | disposition home or self-care (01) | DRG 723 ==
LOC: ED 20:19 → MEDSURG 21:31
PROVIDERS: Admitting Provider Hospitalist; Emergency Provider Family Medicine; Visit Provider Hospitalist
DX: B02.7 Disseminated zoster (principal); I10 Essential (primary) hypertension; E11.9 Type 2 diabetes mellitus without complications; Z79.84 Long term (current) use of oral hypoglycemic drugs; J45.909 Unspecified asthma, uncomplicated; E78.00 Pure hypercholesterolemia, unspecified; Z86.73 Personal history of transient ischemic attack (TIA), and cerebral infarction without residual deficits; F17.210 Nicotine dependence, cigarettes, uncomplicated
CPT/HCPCS: 36415; 71045; 80048; 80076; 82962; 85025; 86140; 94640; 99284; A9270; G0378; J0133; J7050

== ENCOUNTER 2023-03-28 10:42 | Outpatient (CLI) | payer BC, SELFPAY ==
[2023-03-31 05:52] LABS: Varicella-Zoster Virus Source Not Provided; Varicella-Zoster Virus by PCR Not Detected
[2023-03-31 18:27] LABS: HSV 1 Subtype by PCR Not Detected; HSV 2 Subtype by PCR Not Detected; Herpes Simplex Subtype Source Swab
== END 2023-03-28 10:43 | disposition home or self-care (01) ==
PROVIDERS: PCP Family Medicine; Visit Provider Family Medicine
DX: B02.7 Disseminated zoster (principal)
CPT/HCPCS: 80053; 80061; 82043; 82570; 84153; 86787; 87529

== ENCOUNTER 2023-05-01 15:30 | Outpatient (RCR) | payer BC, SELFPAY | END 2023-08-29 23:59 | disposition home or self-care (01) | PROVIDERS: PCP Family Medicine; Visit Provider Orthopaedic Surgery | DX: S82.62XA Displaced fracture of lateral malleolus of left fibula, initial encounter for closed fracture (principal); M25.572 Pain in left ankle and joints of left foot; R26.2 Difficulty in walking, not elsewhere classified; Z51.89 Encounter for other specified aftercare | CPT/HCPCS: 97110; 97140; 97161 ==

== ENCOUNTER 2025-03-11 16:15 | Outpatient (RCR) | payer OTHER, SELFPAY | END 2025-05-12 09:13 | disposition home or self-care (01) | PROVIDERS: PCP Family Medicine; Visit Provider Family Medicine | DX: M54.12 Radiculopathy, cervical region (principal); R29.898 Other symptoms and signs involving the musculoskeletal system; Z51.89 Encounter for other specified aftercare | CPT/HCPCS: 97012; 97110; 97140; 97161 ==

== ENCOUNTER 2025-03-18 05:38 | Emergency (ER) | payer OTHER, SELFPAY ==
--- OUTSIDE RECORDS SUMMARY | 2025-03-18 05:40 | XMS_ITS | Clinical Summary ---
Author Organization [facility] Address [address] [place] [address] Care Team Providers Care Silverer Name Role Phone Unavailable Primary Care Provider Unavailabl e Source Comments PLEASE NOTE, if this patient is a minor, it may be UNLAWFUL to discuss sensitive information that is contained in these records (such as FAMILY PLANNING, MENTAL HEALTH or SUBSTANCE ABUSE) with the minor patient's parent or other person without the patient's specific authorization.[facility] Allergies No known active allergies Medications metFORMIN (GLUCOPHAGE) 500 mg tablet Take 1 Tablet by mouth 2 (two) times daily 2 Active budesonide-form oteroL (SYMBICORT) 160-4.5 mcg/actuation inhaler Take 1 Puff by mouth 2 (two) times daily 2 Active aspirin [address] tablet Take 1 Tablet by mouth daily. TAKE 1 TABLET (81 MG) BY MOUTH ONCE DAILY WITH A MEAL. 3 Active rosuvastatin (CRESTOR) 20 mg tablet Take 1 Tablet (20 mg) by mouth at bedtime. In place of atorvastatin. 3 Active metoprolol succinate XL (TOPROL-XL) 50 mg 24 hr tablet Take 2 Tablets (100 mg) by mouth once daily. Dose increase 09/27/22, no new prescription sent in that day 3 Active amLODIPine (NORVASC) 10 mg tablet TAKE 1 TABLET(10 MG) BY MOUTH EVERY DAY IN THE EVENING 3 Active albuterol HFA 90 mcg/actuation inhaler INHALE 2 PUFFS BY MOUTH FOUR TIMES DAILY NEEDED FOR SHORTNESS OF BREATH OR WHEEZING 3 Active triamcinolone (KENALOG) 0.1 % ointment Apply topically 2 (two) times daily 3 Active oxyCODONE (ROXICODONE) 5 mg tablet Take 1 Tablet by mouth every 6 (six) hours as needed for pain. Max Daily Amount: 20 mg 20 Tablet 5 Active tamsulosin (FLOMAX) 0.4 mg 24 hr capsule Take 1 Capsule by mouth once daily for 30 days. 30 Capsule 5 Active Active Problems Problem Noted Date Diagnosed Date Mild intermittent asthma without complication Controlled type 2 diabetes m ellitus without complication, without long-term current use of insulin 05/23/2022 Overview (06/21/2023): Diagnosed October 2021, Hemoglobin A1C 6.7 Seasonal allergic rhinitis due to pollen 017 Ganglion cyst 05/05/2013 Tobacco use disorder 05/05/2013 Unspecified essential hypertension 02/19/2007 Other and unspecified hyperlipidemia Overview (06/21/2023): patient to work on diet as of 05/02/2006 Encounters Date Type Department Care Team Description 12/19/2024 7:45 PM CDT - 12/19/2024 11:59 PM CDT Hospital Encounter [facility] CT/PET Imaging [address] [place] [address] Discharge Disposition: Home or Self Care 12/19/2024 7:05 PM CDT - 12/19/2024 9:24 PM CDT Emergency [facility] Emergency [address] [place] [id number] Yoandy Ozuna MD Discharge Disposition: Home or Self Care from Last 3 Months Immunizations Immunization Administration Dates Next Due Flu, Preservative Free 06/14/2020 TDAP 02/03/2023,02/23/2012 Td (adult),2 Lf tetanus toxo id (TDVAX), preservative free 01/25/1998 Social History Tobacco Use Types Packs/Day Years Used Date Smoking Tobacco: Every Day Cigarettes Smokeless Tobacco: Never Tobacco Cessation:Ready to Q uit: Yes; Counseling Given: Yes Alcohol Use Standard Drinks/Week Comments Yes 5 (1 standard drink = 0.6 oz pur e alcohol) Social Connections Answer Date Recorded Connectedness 0 02/27/2024 Financial Resource Strain Answer Date R ecorded Financial Resource Strain 0 2022 Stress Answer Date Recorded Stress 0 05/16/2023 Physical Activity Answer Date Recorded Physical Activity 0 05/16/2023 Food Insecurity Answer Date Recorded Food 0 02/28/2024 Transportation Needs Answer Date Record ed Transportation 0 05/16/2023 Housing Stability Answer Date Recorded Housing 0 05/16/2023 Safety and Environment Answer Date Pepe rded Safety 0 05/16/2023 Utilities Answer Date Recorded Utilities 0 05/16/2023 Employment Answer Date Recorded Stress 0 02/27/2024 Sex and Gender Information Value Date Recorded Sex Assigned at Not on file Legal Sex Male 3:49 PM PST Gender Identity Not on file Sexual Orientation Not on file Last Filed Vital Signs Vital Sign Reading Time Taken Comments Blood Pressure 162/84 12/19/2024 7:06 PM CDT Pulse 91 12/19/2024 7:06 PM CDT Temperature 37.2 C (98.9 F) 12/19/2024 7:06 PM CDT Respiratory Rate 18 12/19/2024 7:06 PM CDT Oxygen Saturation 99% 12/19/2024 7:06 PM CDT Inhaled Oxygen Concentration - - Weight 107 kg (235 lb 14.3 oz) 12/19/2024 7:06 P M CDT Height - - Body Mass Index - - Plan of Treatment Health Maintenance Due Date Last Done Comments Anxiety Screening 1967 Diabetes Foot Exam 1967 Tobacco Screening 1967 Urine Albumin Creatinine Rat io Screening 1967 Retinopathy Screening 1980 Imm-Hepatitis B (1 of 3 - 19 + 3-dose series) 1986 Imm-Pneumococcal 50+ (1 of 2 - PCV) 1986 CT Colonography 2012 Colonoscopy 2012 Colorectal Cancer Screening 2012 FIT/gFOBT 2012 Fecal DNA 2012 Flexible Sigmoidoscopy 2012 Imm-Zoster, Recombinant (1 of 2) 2017 Alcohol and Drug Screen 06/04/2024 Depression Annual Screen 06/04/2024 Hemoglobin A1c 08/28/2024 02/29/2024, 08/03, 08/29/2023, Additional history exists Tobacco Cessation Counseling (#1) 11/23/2024 [id number] ( season) 2025 06/24/2021, 09/24/2020, 09/04/2020 Imm-Influenza (#1) 2025 06/14/2020 Lipid Screening 02/28/2025 02/29/2024, 08/29/2023 Serum Creatinine 02/28/2025 02/29/2024, , 08/29/2023, Additional history exists Imm-DTaP/Tdap/Td (3 - Td or Tdap) 02/03/2033 02/03/2023, 02/23/2012, 01/25/1998 HIV Screening Completed 05/23/2022, 05/23/2022 Hepatitis C Screening Completed 05/23/2022, 022 Procedures Procedure Name Priority Date/Time Associated Diagnosis Comments CT ABDOMEN PELVIS STONE W/O CONTRAST PROTOCOL STAT 12/19/2024 7:59 PM CDT BROWNE TOP HOLD TUBE STAT 12/19/2024 7: 12 PM CDT SST TUBE STAT 12/19/2024 7:12 PM CDT LAVENDER TOP STAT 12/19/2024 7:12 PM CDT LIGHT GREEN TOP STAT 12/19/2024 7:12 PM CDT LIGHT GREEN TOP STAT 12/19/2024 7:12 PM CDT LIGHT BLUE TOP STAT 12/19/2024 7:12 PM CDT EXTRA TUBES STAT 12/19/2024 7:12 PM CDT URINALYSIS MICROSCOPIC W/REFLEX CULTURE STAT 12/19/2024 7:06 PM CDT URINALYSIS CHEM WITH REFLEX TO MICRO AND REFLEX TO CX STAT 12/19/2024 7:06 PM CDT from Last 3 Months Results * CT ABDOMEN PELVIS STONE W/O CONTRAST PROTOCOL (12/19/2024 7:59 PM CDT) Anatomical Region Laterality Modality Pelvis Computed Tomogra phy 12/19/2024 7:51 PM CDT Narrative 12/19/2024 8:28 PM CDT EXAM: CT ABDOMEN PELVIS STONE PROTOCOL WITHOUT IV CONTRAST INDICATION: left flank pain, hematuria TECHNIQUE: Sequential axial images are obtained from the diaphragms through the ischial rami without contrast. Coronal reconstructions obtained. While obtaining CT images, dose reduction techniques were utilized including: Automated exposure control, adjustment of mA and/or kV according to patient size, and/or use of iterative reconstruction technique. RADIATION DOSE: 688.59 DLP (mGy cm) COMPARISON: None FINDINGS: Lung bases: Unremarkable. Liver: Unremarkable. No masses. Gallbladder: No calcified gallstones. Normal caliber wall. Biliary Ducts: No intra- or extrahepatic biliary ductal dilation. Pancreas: Unremarkable. Spleen: Unremarkable. No masses. Adrenals: Unremarkable. No masses. Kidneys and ureters: Normal appearance of the right kidney. Prominent renal pelvis of the left kidney without overt hydronephrosis. There is a 3 mm stone at the left ureteropelvic junction shown on series 2, image 80 with adjacent fat stranding. Bladder: Unremarkable. Reproductive organs: No pelvic masses. Bowel: The bowel is nonobstructive in appearance. There is focal fat density within the duodenum compatible with small duodenal lipoma. Stool burden does not appear excessive. Suture material at the cecum suggest changes of appendectomy. Lymph nodes: No pathologic nodes by size criteria. Peritoneum: No ascites or free air. No other fluid collection. Vessels: Normal in size. Retroperitoneum: Unremarkable. No masses. Abdominal wall: Fat containing umbilical hernia. Bones: Unremarkable. IMPRESSION: 1. 3 mm stone at the left ureteropelvic junction with adjacent fat stranding. No overt hydronephrosis. 2. No other acute findings. Procedure Note Demarco Kwan MD - 12/19/2024 EXAM: CT ABDOMEN PELVIS STONE PROTOCOL WITHOUT IV CONTRAST INDICATION: left flank pain, hematuria TECHNIQUE: Sequential axial images are obtained from the diaphragms through theischial rami without contrast. Coronal reconstructions obtained. While obtaining CT images, dose reduction techniques were utilizedincluding: Automated exposure control, adjustment of mA and/or kV according topatient size, and/or use of iterative reconstruction technique. RADIATION DOSE: 688.59 DLP (mGy cm) COMPARISON: None FINDINGS: Lung bases: Unremarkable. Liver: Unremarkable. No masses. Gallbladder: No calcified gallstones. Normal caliber wall. Biliary Ducts: No intra- or extrahepatic biliary ductal dilation. Pancreas: Unremarkable. Spleen: Unremarkable. No masses. Adrenals: Unremarkable. No masses. Kidneys and ureters: Normal appearance of the right kidney. Prominentrenal pelvis of the left kidney without overt hydronephrosis. There is a 3 mmstone at the left ureteropelvic junction shown on series 2, image 80 withadjacent fat stranding. Bladder: Unremarkable. Reproductive organs: No pelvic masses. Bowel: The bowel is nonobstructive in appearance. There is focal fatdensity within the duodenum compatible with small duodenal lipoma. Stool burdendoes not appear excessive. Suture material at the cecum suggest changes of appendectomy. Lymph nodes: No pathologic nodes by size criteria. Peritoneum: No ascites or free air. No other fluid collection. Vessels: Normal in size. Retroperitoneum: Unremarkable. No masses. Abdominal wall: Fat containing umbilical hernia. Bones: Unremarkable. IMPRESSION: 1. 3 mm stone at the left ureteropelvic junction with adjacent fatstranding. No overt hydronephrosis. 2. No other acute findings. us Yoandy Ozuna MD IMG CT PROCEDURES Final Re sult * SST Extra Tube (12/19/2024 7:12 PM CDT) Blood Venous blood specimen / Unknown IV Catheter / Unknown 12/19/2024 7:12 PM CDT 12/19/2024 7:20 PM CDT us Yoandy Ozuna MD LAB BLOOD ORDERABLES Final Result [facility] [address] [id number], * Browne Top (12/19/2024 7:12 PM CDT) Blood Venous blood specimen / Unknown IV Catheter / Unknown 12/19/2024 7:12 PM CDT 12/19/2024 7:20 PM CDT us Yoandy Ozuna MD LAB BLOOD ORDERABLES Final Result Performing Organization Address [facility]/ZIP Co de Phone Number [facility] [address] [place] [address], * Lavender Top (12/19/2024 7:12 PM CDT) Blood Venous blood specimen / Unknown IV Catheter / Unknown 12/19/2024 7:12 PM CDT 12/19/2024 7:20 PM CDT Yoandy Ozuna MD LAB BLOOD ORDERABLES Final Result Performing Organization Address [facility] Co de Phone Number [facility] [address] [place] [address], * Light Green Top (12/19/2024 7:12 PM CDT) Only the most recent of2 resultswithin the time period is included. Blood Venous blood specimen / Unknown IV Catheter / Unknown 12/19/2024 7:12 PM CDT 12/19/2024 7:20 PM CDT Yoandy Ozuna MD LAB BLOOD ORDERABLES Final Result Performing Organization Address [facility] Co de Phone Number [facility] [address] [place] [address], * Light Blue Top (12/19/2024 7:12 PM CDT) Blood Venous blood specimen / Unknown IV Catheter / Unknown 12/19/2024 7:12 PM CDT 12/19/2024 7:20 PM CDT us Yoandy Ozuna MD LAB BLOOD ORDERABLES Final Result Performing Organization Address [facility] Co de Phone Number [facility] [address] [place] [address], * (ABNORMAL) URINALYSIS MICROSCOPIC W/REFLEX CULTURE (12/19/2024 7:06 PM CDT) RBC, Urine 51-100(A) None Seen /HPF 12/19/2024 7:27 PM [facility] WBC, Urine 6-10(A) None Seen /HPF 12/19/2024 7:27 PM [facility] Squamous Epithelial, Urine Few None Seen, Few /HPF 12/19/2024 7:27 PM [facility] Bacteria, Urine Few(A) None, Rare /HPF 12/19/2024 7:27 PM [facility] Mucus, Urine Present(A) None Seen /HPF 12/19/2024 7:27 PM [facility] Urine Urine specimen obtained by clean catch procedure / Unknown Non-blood Collection / Unknown 12/19/2024 7:06 PM CDT 12/19/2024 7:12 PM CDT Yoandy Ozuna MD LAB URINE ORDERABLES Final Result [facility] [address] [place] [address], * (ABNORMAL) UA w/reflex to micro and culture - symptomatic patient (in house) (12/19/2024 7:06 PM CDT) Color, Urine YELLOW LIGHT YELLOW, YELLOW, DARK YELLOW, N/A Due to Color Interference 12/19/2024 7:15 PM [facility] Clarity, Urine CLOUDY(A) CLEAR 12/19/2024 7:15 PM [facility] Glucose, Urine NEGATIVE NEGATIVE 12/19/2024 7:15 PM [facility] Bilirubin, Urine NEGATIVE NEGATIVE 12/19/2024 7:15 PM [facility] Ketones, Urine NEGATIVE NEGATIVE 12/19/2024 7:15 PM [facility] Specific [place], Urine >=1.030(A) 1.010 , 1.015 , 1.020, 1.025 , N/A Due to Color Interference 12/19/2024 7:15 PM [facility] Blood, Urine LARGE(A) NEGATIVE 12/19/2024 7:15 PM [facility] pH, Urine 6.0 6.0, 7.0, 8.0, 5.5, 6.5, 7.5, 8.5 12/19/2024 7:15 PM [facility] Protein, Urine 100(A) NEGATIVE 12/19/2024 7:15 PM [facility] Nitrite, Urine NEGATIVE NEGATIVE 12/19/2024 7:15 PM [facility] Leukocyte Esterase NEGATIVE NEGATIVE 12/19/2024 7:15 PM [facility] Urobilinogen, Urine 0.2 Negative mg/dL 12/19/2024 7:15 PM [facility] Urine Urine specimen obtained by clean catch procedure / Unknown Non-blood Collection / Unknown 12/19/2024 7:06 PM CDT 12/19/2024 7:12 PM T Yoandy Ozuna MD LAB URINE ORDERABLES Final Result [facility] [address] [place] [address], from Last 3 Months Insurance [facility]
--- OUTSIDE RECORDS SUMMARY | 2025-03-18 05:40 | XMS_ITS | Clinical Summary ---
Author Organization [facility] Address [address] [place] [address] Care Team Providers Care Freight Booker Name Role Phone Shahana Ochoa DO Primary Care Provider [phone] Allergies No known active allergies Medications montelukast (SINGULAIR) 10 mg tabletIndications: Seasonal allergic rhinitis due to pollen Take 1 tablet by mouth at bedtime. 30 tablet 11 07/30/19 18 Active aspirin (ECOTRIN) 81 mg enteric coated tabletIndications: TIA (transient ischemic attack) Take 1 Tablet (81 mg) by mouth once daily with a meal. 0 09/28/19 23 Active triamcinolone 0.1 % ointmentIndication s:Rash and other nonspecific skin eruption APPLY TOPICALLY TO THE AFFECTED AREA TWICE DAILY 454 g 05/26/20 24 Active albuterol HFA (PRO-AIR; VENTOLIN; PROVENTIL) 90 mcg/actuation inhalerIndications :Bronchospasm Inhale 2 Puffs by mouth 4 times daily if needed for Shortness Of Breath or Wheezing. 6.7 g 01/27/20 25 Active amLODIPine (NORVASC) 10 mg tabletIndications: HTN (hypertension) Take 1 Tablet (10 mg) by mouth once daily. 90 Tablet 01/27/20 25 Active metFORMIN (GLUCOPHAGE) 500 mg tabletIndications: Controlled type 2 diabetes mellitus without complication, without long-term current use of insulin (HC) Take 1 Tablet (500 mg) by mouth two times daily with meals. 180 Tablet 3 01/27/20 25 Active metoprolol succinate (TOPROL XL) 100 mg Sustained-Release tabletIndications: HTN (hypertension) Take 1 Tablet (100 mg) by mouth once daily. 90 Tablet 3 01/27/20 Active rosuvastatin (CRESTOR) 20 mg tabletIndications: Hyperlipidemia, unspecified hyperlipidemia type Take 1 Tablet (20 mg) by mouth at bedtime. In place of atorvastatin. 90 Tablet 3 01/27/20 Active budesonide-formote roL (SYMBICORT,BREYNA) 160-4.5 mcg/actuation (160-4.5 mcg each actuation) inhalerIndications :Mild intermittent asthma without complication (HC) Inhale 2 Puffs by mouth two times daily. 10.2 g 3 01/27/20 Active predniSONE (DELTASONE) 10 mg tabletIndications: Neck pain, acute,Rhomboid muscle pain Take 5 tablets daily for 3 days, then 4,3,2, 1 each daily for 3 days then discontinue. 45 Tablet 01/15/20 025 Discontinu ed(Reorder (E-cancel not sent)) cyclobenzaprine (FLEXERIL) 5 mg tabletIndications: Upper back pain on left side Take 1 Tablet (5 mg) by mouth every 8 hours if needed for Muscle Spasm. 60 Tablet 01/27/20 25 025 predniSONE (DELTASONE) 20 mg tabletIndications: Left cervical radiculopathy,Left hand weakness 2 tabs daily for 3 days, 1 tab daily for 3 days, and 1/2 tab daily for 4 days. 11 Tablet 02/25/20 025 Active Problems Problem Noted Date Diagnosed Date Lung nodules 02/03/2025 Overview (02/09/2025): 02/03/25- Lung Nodules- Plan- repeat scan in 6 months through Lung Screening Program. Mild intermittent asthma without complication Controlled type 2 diabetes m ellitus without complication, without long-term current use of insulin 05/23/2022 Overview (05/23/2022): Diagnosed October 2021, Hemoglobin A1C 6.7 Seasonal allergic rhinitis due to pollen 017 Ganglion cyst 05/05/2013 Tobacco use disorder 05/05/2013 Unspecified essential hypertension 02/19/2007 Other and unspecified hyperlipidemia Overview (11/12/2006): patient to work on diet as of 05/02/2006 Resolved Problems Problem Noted Date Diagnosed Date Resolved Date Tobacco use disorder 02/29/2024 024 Bronchospasm 07/30/2017 05/23/2022 Other abnormal glucose 05/23 Overview (11/12/2006): Possible prediabetes as of 05/02/2006 Encounters Date Type Department Care Team Description 03/17/2025 12:35 PM CDT Office Visit [facility] [address] [place] [address] Devang Le MD Musculoskeletal Problem (Follow-up LEFT upper extremity weakness ) 03/17/2025 Travel 02/24/2025 12:35 PM CDT Office Visit [facility] [place] [place] [address] Devang Le MD Musculoskeletal Problem (Consultation for LEFT Upper Extremity weakness x 1-2 months) 02/24/2025 Travel 02/18/[address] [place] [address] Shahana Ochoa DO Referral (Dx) 02/18/2025 Telephone [place] [address] [place] [place] [address] Shahana Ochoa DO Appointment Request 02/11/2025 12:30 PM CDT Ancillary Procedure [address] [address] 02/11/2025 11:45 AM CDT Ancillary Procedure [address] [address] 02/11/2025 Travel 02/04/2025 Telephone [facility] [address] [place] [phone] Shahana Ochoa DO Lung Cancer Screening - CT Result 02/03/2025 2:00 PM CDT Ancillary Procedure [address] [address] 02/03/2025 Travel 01/26/2025 1:20 PM CDT Office Visit [facility] [address] [place] [address] Shahana Ochoa DO Back Pain (F/u back pain, weakness in hand/arm); Medication Management (Review, renew) 01/26/2025 Travel 01/14/2025 4:05 PM CDT Office Visit [facility] [address] [place] [address] Elmer Humphrey MD Back Pain (onset 3 weeks ago. Between L shoulder blade and spine, radiates up to neck and down left arm. No known injury, pain level 4-6 while sitting, worse depending on position. Disrupting sleep pain varies depending on position. ) 01/14/2025 Travel 12/26/2024 Refill [facility] [address] [place] [address] Shahana Ochoa DO Refill Request (Metoprolol Succinate) from Last 3 Months Immunizations Immunization Administration Dates Next Due COVID-19 vaccine ([employer] 30mcg/0.3mL) PFHODAN 06/24/2021,09/24/2020,09/04/2020 Influenza, IIV4 06/14/2020 Td (Age >=7 Years) 01/25/1998 Tdap 02/03/2023,02/23/2012 Family History Medical History Relation Name Comments No Known Problems Daughter 1 No Known Problems Daughter 2 Diabetes Father Vitor Other Father Vitor needs to self c atheterize Stroke Father Vitor Good Health Mother Zaira No Known Problems Sister Linda Cancer-prostate No Family History Relation Name Status Comments Daughter 1 Alive Daughter 2 Alive Father Vitor Mother Zaira Alive Sister Linda Alive Social History Tobacco Use Types Packs/Day Years Used Date Smoking Tobacco: Former Cigarettes 1 28.4 S tarted: 10/14/1996 Smokeless Tobacco: Never Tobacco Cessation:Counseling Given: Not Answered Comments:Quit date 02/21/2025 Alcohol Use Standard Drinks/Week Comments Yes 5 (1 standard drink = 0.6 oz pur e alcohol) couple times 3/4 days PHQ-2 Answer Date Recorded PHQ-2 TOTAL SCORE 0 08/29/2023 Social Connections Answer Date Recorded Do you often feel lonely or isolated from those around you? 0 01/14/2025 Alcohol Use Answer Date Recorded How often do you have a drink containing alcohol ? 3 02/24/2025 How many drinks containing a lcohol do you have on a typical day when you are drinking? 1 02/24/2025 How often do you have five or more drinks on one occasion? 2 02/24/2025 Financial Resource Strain Answer Date R ecorded Difficulty of Paying Living Expenses 3 01/14/2025 Difficulty of Paying Living Expenses Not on file 01/14/2025 Food Insecurity Answer Date Recorded Do you worry your food will run out before you are able to buy more? 1 01/14/2025 Transportation Needs Answer Date Record ed Does lack of transportation keep you from medica l appointments? 1 01/14/2025 Does lack of transportation keep you from work, meetings or getting things that you need? 1 01/14/2025 Housing Stability Answer Date Recorded What is your housing situation today? 1 01/14/2025 Utilities Answer Date Recorded Do you have trouble paying f or utilities (for example, heat, electricity, water, phone)? 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 Not on file Not on file Not on fi le Obstetrics History Last Filed Vital Signs Vital Sign Reading Time Taken Comments Blood Pressure 137/80 03/17/2025 12:36 PM CDT Pulse 90 03/17/2025 12:36 PM CDT Temperature 36.4 C (97.5 F) 01/14/2025 3:31 PM CDT Respiratory Rate 18 04/04/2023 8:01 AM CDT Oxygen Saturation 96% 03/17/2025 12: 36 PM CDT Inhaled Oxygen Concentration - - Weight 106.7 kg (235 lb 3.2 oz) 025 12:36 PM CDT Height 179 cm (5' 10.47) 01/26/2025 1:27 PM CDT Body Mass Index 33.3 01/26/2025 1:27 PM CDT Plan of Treatment Health Maintenance Due Date Last Done Comments Hepatitis B series for 19+ ( 1 of 3 - 19+ 3-dose series) 1986 Pneumococcal series for age 50+ (1 of 2 - PCV) 1986 Colonoscopy through age 75 2012 Zoster (shingles) series for age 50+ (1 of 2) 2017 Depression screening for age 12+ 08/28/2024 08/29/2023, 08/29/2023, 09/28/2022, Additional history exists COVID-19 vaccine series ( season) 2025 06/24/2021, 09/24/2020, 09/04/2020 Influenza Vaccine (#1) 2025 06/14/2020 BMI (ht and wt on same day) for age 18+ 01/26/2026 01/26/2025, 02/29/2024, 02/06/2023, Additional history exists Low Dose CT (for lung CA) ag e 50-80 02/03/2026 02/03/2025 Lipids for age 45-75 01/26/2030 01/26/2025, 02/29/2024, 08/29/2023, Additional history exists Tetanus booster 02/03/2033 02/03/2023, 02/03, 01/25/1998 RSV vaccine for adults or (1 - 1-dose 75+ series) 2042 HIV for age 15-65 Completed 05/23/2022 Hepatitis C screening for ag e 18-79 Completed 05/23/2022 Procedures Procedure Name Priority Date/Time Associated Diagnosis Comments MR SPINE THORACIC WO Routine 02/11/2025 12:58 PM CDT Muscle weakness of left upper extremity MR SPINE CERVICAL WO Routine 02/11/2025 12:15 PM CDT Muscle weakness of left upper extremity CT CHEST SCREENING LOW DOSE WO CONTRAST Routine 02/03/2025 2:19 PM CDT Encounter for screening for lung cancer URINE ALBUMIN TO CREATININE RATIO, RANDOM Routine 01/26/2025 2:26 PM CDT Controlled type 2 diabetes mellitus without complication, without long-term current use of insulin (HC) BASIC METABOLIC PANEL Routine 01/26/2025 2:26 PM CDT Mild intermittent asthma without complication (HC) LIPID PANEL W REFLEX MEASURED LDL Routine 01/26/2025 2:26 PM CDT Hyperlipidemia, unspecified hyperlipidemia type HEMOGLOBIN A1C MONITORING (POCT) Routine 01/26/2025 2:26 PM CDT Controlled type 2 diabetes mellitus without complication, without long-term current use of insulin (HC) ANTI HIV 1/2 Routine 05/23/2022 3:43 PM CONSULTANT INTERN Encounter for screening for HIV ANTI HCV Routine 05/23/2022 3:43 PM CONSULTANT INTERN Need for hepatitis C screening test from Last 3 Months or Most Recently Relevant to Health Maintenance Results * MR SPINE THORACIC WO (02/11/2025 12:58 PM CDT) Anatomical Region Laterality Modality Spine, THORACIC SPINE Magnetic R esonance 02/12/2025 9:37 AM CDT Narrative 02/12/2025 9:37 AM CDT For Patients: As a result of the Cures Act, medical imaging exams and procedure reports are released immediately into your electronic medical record. You may view this report before your referring provider. If you have questions, please contact your health care provider. Indication: Muscle weakness of left upper extremity. Technique: Multiplanar multisequence noncontrast MR images of the thoracic spine. Comparison: CT chest 02/03/2025. Findings: Mild biconvex thoracic curvature. The thoracic kyphosis is preserved. Mild chronic anterior wedging of multiple mid and lower thoracic vertebral bodies. No acute fracture or spondylolisthesis. No T1 hypointense lesions. The thoracic cord is normal in signal intensity. Diffuse disc degeneration. Superiorly migrated right central disc extrusion at T11-12 mildly narrows the spinal canal. Superiorly migrated right central disc extrusion at T12-L1 indents the cord and ujkz-oh-dxrzrsvupz narrows the spinal canal. Multilevel facet arthropathy, advanced on the right at T4-5, contributes up to moderate neural foraminal stenosis on the right at T4-5. Minimal edema in the right posterior element at T3-4 and T4-5, compatible with a stress response. Impression: 1. Multilevel thoracic spondylosis without high-grade spinal canal stenosis. 2. At T4-5, advanced right facet arthropathy contributes to moderate neural foraminal stenosis. Minimal edema in the right posterior elements is compatible with a stress response. 3. At T12-L1, superiorly migrated right central disc extrusion mild to moderately narrows the spinal canal. Dictated by Odell Bello MD @ 02/12/2025 9:37:01 AM (Electronically Signed) Procedure Note Odell Bello MD - 02/12/2025 For Patients: As a result of the Cures Act, medical imagingexams and procedure reports are released immediately into your electronicmedical record. You may view this report before your referring provider.If you have questions, please contact your health care provider. Indication: Muscle weakness of left upper extremity. Technique: Multiplanar multisequence noncontrast MR images of the thoracic spine. Comparison: CT chest 02/03/2025. Findings: Mild biconvex thoracic curvature. The thoracic kyphosis is preserved. Mildchronic anterior wedging of multiple mid and lower thoracic vertebralbodies. No acute fracture or spondylolisthesis. No T1 hypointense lesions.The thoracic cord is normal in signal intensity. Diffuse disc degeneration. Superiorly migrated right central discextrusion at T11-12 mildly narrows the spinal canal. Superiorly migratedright central disc extrusion at T12-L1 indents the cord rpgmyvm-qw-lfobtfiuzt narrows the spinal canal. Multilevel facet arthropathy,advanced on the right at T4-5, contributes up to moderate neural foraminalstenosis on the right at T4-5. Minimal edema in the right posteriorelement at T3-4 and T4-5, compatible with a stress response. Impression: 1. Multilevel thoracic spondylosis without high-grade spinal canalstenosis. 2. At T4-5, advanced right facet arthropathy contributes to moderateneural foraminal stenosis. Minimal edema in the right posterior elementsis compatible with a stress response. 3. At T12-L1, superiorly migrated right central disc extrusion mild tomoderately narrows the spinal canal. Dictated by Odell Bello MD @ 02/12/2025 9:37:01 AM (Electronically Signed) Shahana Ochoa DO MR Final Result * MR SPINE CERVICAL WO (02/11/2025 12:15 PM CDT) Anatomical Region Laterality Modality Spine, CERVICAL SPINE Magnetic R esonance 02/12/2025 9:23 AM CDT Narrative 02/12/2025 9:23 AM CDT For Patients: As a result of the Cures Act, medical imaging exams and procedure reports are released immediately into your electronic medical record. You may view this report before your referring provider. If you have questions, please contact your health care provider. Indication: Muscle weakness of left upper extremity. Technique: Multiplanar multisequence noncontrast MR images of the cervical spine. Comparison: None. Findings: Mild reversal of the cervical lordosis. Slight biconvex cervical curvature. No acute fracture. No T1 hypointense lesions. The cervical cord is normal in signal intensity. C2-3: Small central disc protrusion. Mild facet arthropathy. Minimal spinal canal narrowing. No neural foraminal narrowing. C2-3: Trace anterolisthesis. Broad-based central disc protrusion. Uncinate spurring. Mild facet arthropathy. Mild central canal narrowing. Hudg-hh-qluldsgk left without right neural foraminal narrowing. C4-5: Ozlt-cv-inmtadmo disc height loss. Posterior disc osteophyte complex. Uncinate spurring. Mild spinal canal narrowing. Severe right and moderately severe left neural foraminal stenosis. C5-6: Moderate disc height loss. Posterior disc osteophyte complex. Ligamentum flavum thickening. Uncinate spurring. Moderate spinal canal narrowing. Severe bilateral neural foraminal stenosis. C6-7: Severe disc height loss. Yxdh-kf-ajwipozu vertebral body edema. Posterior disc osteophyte complex. Superimposed small caudally migrated central disc extrusion. Advanced uncinate spurring. Mild spinal canal narrowing. Severe bilateral neural foraminal stenosis. C7-T1: Left eccentric posterior disc osteophyte complex. Left uncinate spurring. Moderate facet arthropathy. No spinal canal narrowing. Moderately severe left and mild right neural foraminal narrowing. T1-2: No spinal canal or neural foraminal narrowing. Impression: 1. Advanced multilevel cervical spondylosis without high-grade spinal canal stenosis. 2. Moderate spinal canal narrowing at C5-6. No cord signal abnormality. 3. Advanced neural foraminal stenosis bilaterally C4-5 through C6-7 as well as on the left at C7-T1. Dictated by Odell Bello MD @ 02/12/2025 9:23:36 AM (Electronically Signed) Procedure Note Odell Bello MD - 02/12/2025 For Patients: As a result of the Cures Act, medical imagingexams and procedure reports are released immediately into your electronicmedical record. You may view this report before your referring provider.If you have questions, please contact your health care provider. Indication: Muscle weakness of left upper extremity. Technique: Multiplanar multisequence noncontrast MR images of the cervical spine. Comparison: None. Findings: Mild reversal of the cervical lordosis. Slight biconvex cervicalcurvature. No acute fracture. No T1 hypointense lesions. The cervical cordis normal in signal intensity. C2-3: Small central disc protrusion. Mild facet arthropathy. Minimalspinal canal narrowing. No neural foraminal narrowing. C2-3: Trace anterolisthesis. Broad-based central disc protrusion. Uncinatespurring. Mild facet arthropathy. Mild central canal narrowing.Haxi-zd-kmfemtmk left without right neural foraminal narrowing. C4-5: Bavq-gj-jvrhnsbl disc height loss. Posterior disc osteophytecomplex. Uncinate spurring. Mild spinal canal narrowing. Severe right andmoderately severe left neural foraminal stenosis. C5-6: Moderate disc height loss. Posterior disc osteophyte complex.Ligamentum flavum thickening. Uncinate spurring. Moderate spinal canalnarrowing. Severe bilateral neural foraminal stenosis. C6-7: Severe disc height loss. Rqdq-pg-wdxfkchw vertebral body edema.Posterior disc osteophyte complex. Superimposed small caudally migratedcentral disc extrusion. Advanced uncinate spurring. Mild spinal canalnarrowing. Severe bilateral neural foraminal stenosis. C7-T1: Left eccentric posterior disc osteophyte complex. Left uncinatespurring. Moderate facet arthropathy. No spinal canal narrowing.Moderately severe left and mild right neural foraminal narrowing. T1-2: No spinal canal or neural foraminal narrowing. Impression: 1. Advanced multilevel cervical spondylosis without high-grade spinalcanal stenosis. 2. Moderate spinal canal narrowing at C5-6. No cord signal abnormality. 3. Advanced neural foraminal stenosis bilaterally C4-5 through C6-7 aswell as on the left at C7-T1. Dictated by Odell Bello MD @ 02/12/2025 9:23:36 AM (Electronically Signed) us Shahana Ochoa DO MR Final Result * CT CHEST SCREENING LOW DOSE WO CONTRAST [[id number]] (02/03/2025 2:19 PM CDT) Anatomical Region Laterality Modality Computed Tomogra phy Impressions 02/03/2025 3:37 PM CDT Bilateral nodules including a 7.9 millimeter subsolid left lower lobe nodule. LUNG-RADS CATEGORY 3: Probably benign. RADIOLOGIST RECOMMENDATION: Low-dose CT chest in 6 months. Please note that all CT scans at this facility use dose modulation, iterative reconstruction and/or weight-based dosing when appropriate to reduce radiation dose to as low as reasonably achievable. Dictated by: Aneudy Mcclure MD @02/03/2025 2:39:09 PM/jana Narrative 02/03/2025 3:37 PM CDT For Patients: As a result of the Century Cures Act, medical imaging exams and procedure reports are released immediately into your electronic medical record. You may view this report before your referring provider. If you have questions, please contact your health care provider. CT CHEST SCREENING LOW-DOSE WITHOUT CONTRAST, 02/03/2025 INDICATION: Lung cancer screening. History of smoking. TECHNIQUE: Low-dose lung cancer screening non-contrast CT chest. Dose reduction techniques were used. COMPARISON: None. FINDINGS: NODULES: Subsolid nodular density within the left lower lobe measures 7.9 millimeters, 5/124. Subpleural nodule in the left upper lobe measures 3 millimeters, 5/87. Perifissural nodule right lower lobe measures 5.2 millimeters, 5/95. LUNGS AND PLEURA: Emphysema. MEDIASTINUM: No enlarged lymph nodes. CORONARY ARTERY CALCIFICATION: Mild. LIMITED UPPER ABDOMEN: Atherosclerotic changes. MUSCULOSKELETAL: No fracture. us Shahana Ochoa DO CT Final Result * (ABNORMAL) LIPID PANEL W REFLEX MEASURED LDL (01/26/2025 2:26 PM CDT) CHOLESTEROL, TOTAL 164 <200 mg/dL 01/27/2025 4:07 AM CDT [facility] TRIGLYCERIDES 241(H) <150 mg/dL 01/27/2025 4:07 AM [facility] Comment: If a non-fasting specimen was collected, consider repeat triglyceride testing on a fasting specimen if clinically indicated. Radha et al. J. of Clin. Lipidol. 2015;9:129-169. HDL CHOLESTEROL 73 > OR = 40 mg/dL 01/27/2025 4:07 AM [facility] NON HDL CHOLESTEROL 91 <130 mg/dL (calc) 01/27/2025 4:07 AM [facility] Comment: For patients with diabetes plus 1 major ASCVD risk factor, treating to a non-HDL-C goal of <100 mg/dL (LDL-C of <70 mg/dL) is considered a therapeutic option. CHOL/HDLC RATIO 2.2 <5.0 (calc) 01/27/2025 4:07 AM [facility] LDL-CHOLESTEROL 61 mg/dL (calc) 01/27/2025 4:07 AM [facility] Comment: Reference range: <100 Desirable range <100 mg/dL for primary prevention; <70 mg/dL for patients with CHD or diabetic patients with > or = 2 CHD risk factors. LDL-C is now calculated using the Jaime-Trinity calculation, which is a validated novel method providing better accuracy than the Friedewald equation in the estimation of LDL-C. Jaime SS et al. MAURO. 2013;310(19): 8478-2608 (http://education.[employer].eÓtica/faq/CSU293) Blood BLOOD SPECIMEN / Unknown [facility] / Unknown 01/26/2025 2:26 PM CDT 01/26/2025 2:26 PM CDT Shahana [employer] Gabriela MURPHY CHEMISTRY Final Result [facility] [address] [phone], * URINE ALBUMIN TO CREATININE RATIO, RANDOM (01/26/2025 2:26 PM CDT) ALB RAND URINE 23.8 mg/L 01/26/2025 11:26 PM CDT [facility] CREATININE,URIN E 1.34 g/L 01/26/2025 11:26 PM CDT [facility] ALBUMIN TO CREATININE RATIO,RAND UR 17.8 <30.0 mg/g creat 01/26/2025 11:26 PM CDT [facility] Urine URINE SPECIMEN / Unknown Non-Blood / Unknown 01/26/2025 2:26 PM CDT 01/26/2025 2:26 PM CDT Narrative [facility] - 01/26/2025 11:26 PM CDT If Albumin to Creatinine Ratio is elevated, consider the following: Elevations seen with incipient nephropathy associated with diabetes mellitus or hypertension. Stress, exercise,hematuria, and urinary tract infection may also produce elevated results. If clinically indicated, confirm with 24 Hour Albumin to Creatinine Ratio. [employer] MURPHY URINE Final Result Performing Organization Address City/[facility]/ZIP Co de Phone Number [facility] [address] [place] [address], * (ABNORMAL) HEMOGLOBIN A1C MONITORING (POCT) (01/26/2025 2:26 PM CDT) POC HEMOGLOBIN A1C 6.5(H) <6.0 % OF TOTAL HGB 01/26/2025 2:45 PM CDT [facility] Comment: Any point of care results exhibiting inconsistency with the patient's clinical status should be repeated using a different testing method. Blood BLOOD SPECIMEN / Unknown [facility] / Unknown 01/26/2025 2:26 PM CDT 01/26/2025 2:26 PM CDT Shahana Ochoa DO CHEMISTRY Final Result [facility] [address] [place] [address], [place] [phone] [facility] [address] [place] [address], [place] [phone] * (ABNORMAL) BASIC METABOLIC PANEL (01/26/2025 2:26 PM CDT) SODIUM 139 135 - 146 mmol/L 01/27/2025 4:07 AM CDT [facility] POTASSIUM 4.6 3.5 - 5.3 mmol/L 01/27/2025 4:07 AM CDT [facility] CARBON DIOXIDE 31 20 - 32 mmol/L 01/27/2025 4:07 AM CDT [facility] GLUCOSE 240(H) 65 - 99 mg/dL 01/27/2025 4:07 AM CDT [facility] Comment: Fasting reference interval For someone without known diabetes, a glucose value >125 mg/dL indicates that they may have diabetes and this should be confirmed with a follow-up test. CALCIUM 9.4 8.6 - 10.3 mg/dL 01/27/2025 4:07 AM CDT [facility] CREATININE 0.91 0.70 - 1.30 mg/dL 01/27/2025 4:07 AM CDT [facility] BUN/CREATININE RATIO SEE NOTE: 6 - 22 (calc) 01/27/2025 4:07 AM CDT [facility] Comment: Not Reported: BUN and Creatinine are within reference range. EGFR 98 > OR = 60 mL/min/1. 73m2 01/27/2025 4:07 AM CDT [facility] UREA NITROGEN (BUN) 16 7 - 25 mg/dL 01/27/2025 4:07 AM CDT [facility] ELECTROLYTE BALANCE 8 7 - 17 mmol/L (calc) 01/27/2025 4:07 AM CDT [facility] CHLORIDE 100 98 - 110 mmol/L 01/27/2025 4:07 AM CDT [facility] Blood BLOOD SPECIMEN / Unknown [facility] / Unknown 01/26/2025 2:26 PM CDT 01/26/2025 2:26 PM CDT Shahana Ochoa DO CHEMISTRY Final Result [facility] [address] [place] [address], [place] [phone] * ANTI HCV (05/23/2022 3:43 PM CONSULTANT INTERN) HEPATITIS C ANTIBODY Non-React anmol Non-React anmol 05/25/2022 6:22 PM CONSULTANT INTERN [facility] Comment:Antibodies to HCV no t detected; does not exclude the possibility of exposure to HCV. Blood BLOOD SPECIMEN / Unknown Venipuncture / Unknown 05/23/2022 3:43 PM CONSULTANT INTERN 05/23/2022 3:46 PM CONSULTANT INTERN Pema VILLARREAL S[employer] Final Resu lt Performing Organization Address City/[facility]/ZIP Co de Phone Number [facility] [address] [place] [address], * ANTI HIV 1/2 (05/23/2022 3:43 PM CONSULTANT INTERN) Pathologist [facility] HIV-1/HIV-2 ANTIBODY Non-Reacti ve Non-Reacti ve 05/25/2022 6:22 PM CONSULTANT INTERN [facility] Comment:HIV-1 p24 and HIV-1/ HIV-2 Ab not detected. Blood BLOOD SPECIMEN / Unknown Venipuncture / Unknown 05/23/2022 3:43 PM CONSULTANT INTERN 05/23/2022 3:46 PM CONSULTANT INTERN Pema [facility]AR[employer] Final Resu lt [facility] [address] [place] [address], from Last 3 Months or Most Recently Relevant to Health Maintenance Insurance [facility] Care Teams Freight Booker Relationship Specialty Start Date End Date Shahana [place] [address] PCP - General Family Practice 08/29/23
[2025-03-18 05:45] VITALS: BP 143/80; PULSE 83; RESP 18; TEMP 37; O2SAT 93; BMI 31.9
--- NOTE | 2025-03-18 05:51 | ED.GENADULT ---
HPI - General Adult General Time Seen by Provider: 05:51 Date Seen: 03/18/25 Chief complaint: Flank Pain Stated complaint: possible kidney stone Time Seen by Provider: 03/18/25 05:50 Source: patient Mode of arrival: ambulatory Limitations: no limitations History of Present Illness HPI narrative: 59-year-old male who comes in today with flank pain. History of kidney stones this is felt similar, pain started about 5 hours ago. Pain is on the LEs flank, does not radiate into the abdomen, nausea. Has also notes blood in the urine. He took oxycodone earlier which he had from a prior kidney stone. Related Data Home Medications ?Medication ?Instructions ?Recorded ?Confirmed amlodipine 10 mg tablet 10 mg PO DAILY 09/25/22 03/18/25 metoprolol succinate 50 mg 50 mg PO DAILY 09/25/22 03/18/25 tablet,extended release 24 hr rosuvastatin 20 mg tablet 20 mg PO QPM 02/06/23 03/18/25 aspirin 81 mg tablet,delayed 81 mg PO QDAY 04/13/23 03/18/25 release (Adult Low Dose Aspirin) Previous Rx's ?Medication ?Instructions ?Recorded hydroxyzine HCl 25 mg tablet 25 mg PO QID PRN itching #40 tabs 03/28/23 prednisone 10 mg tablet See Rx Instructions PO QDAY #30 04/13/23 tabs triamcinolone acetonide 0.1 % 1 applic topical BID #60 mL 04/13/23 lotion albuterol sulfate 90 mcg/actuation 2 puff inhalation QID PRN wheezing 08/10/23 aerosol inhaler #8.5 grams budesonide-formoterol HFA 160 2 puff inhalation DAILY #10.2 grams 08/10/23 mcg-4.5 mcg/actuation aerosol inhaler (Symbicort) montelukast 10 mg tablet 10 mg PO QHS #90 tabs 08/10/23 metformin 500 mg tablet,extended 1,000 mg (2 x 500 mg) PO QDAY #180 07/11/24 release 24 hr tabs Allergies Allergy/AdvReac Type Severity Reaction Status Date / Time No Known Drug Allergies Allergy Verified 03/18/25 05:47 [facility] Medical History (Updated 03/18/25 @ 06:19 by Zan Flanagan MD) TIA (transient ischemic attack) ?G45.9 - Transient cerebral ischemic attack, unspecified (ICD-10) Type 2 diabetes mellitus, without long-term current use of insulin ?E11.9 - Type 2 diabetes mellitus without complications (ICD-10) Primary hypertension ?I10 - Essential (primary) hypertension (ICD-10) Mixed hyperlipidemia ?E78.2 - Mixed hyperlipidemia (ICD-10) Mild asthma without complication ?J45.909 - Unspecified asthma, uncomplicated (ICD-10) Surgical History (Updated 03/31/23 @ 21:27 by Aneudy Gentile MD) Fracture of ankle, lateral malleolus, left, closed (02/09/23) ?S82.62XA - Displaced fracture of lateral malleolus of left fibula, initial encounter for closed fracture (ICD-10) History of right hemicolectomy (03/17/12) ?Z90.49 - Acquired absence of other specified parts of digestive tract (ICD-10) Social History (Updated 04/15/23 @ 19:46 by Aneudy Gentile MD) Narrative: , two kids, senior reliability engineer, 1 ppd smoker, social ETOH What is your current living situation?: I presently have a place to live Problems where you live: no known problems Problems where you live details: n/a In the past 12 months, utilities in danger of being shut off: no In past 12 months, lack of transportation kept you from medical appts, meetings, work, or getting things needed for daily living: no In the past 12 mos, have been you worried that your food would run out before you had money to buy more?: never true In the past 12 mos, the food you bought just didn't last and you didn't have money to buy more?: never true Highest level of school completed/degree received: Associate degree: occupational, technical, vocational program Smoking Status: Current every day smoker What tobacco products do you use: cigarettes Smoking packs per day: 1 Smoking cigarettes per day: 20.0 Years smoked: 30 Smoking pack-years: 30.00 Do you use any of these nicotine containing products: None Second hand tobacco smoke exposure: No How often do you have a drink containing alcohol: 2-3 times a week Alcohol type: beer How many standard drinks containing alcohol do you have on a typical day: 3 or 4 How often do you have six or more drinks on one occasion: Monthly AUDIT-C Alcohol total score: 6 Non-prescribed substance use: denies use Caffeine: Yes How often does anyone, including family, friends and others, physically hurt you: never How often does anyone, including family, friends and others, insult or talk down to you: never How often does anyone, including family, friends and others, threaten you with harm: never How often does anyone, including family, friends and others, scream or curse at you: never service: No Exam Narrative: Exam Narrative: General: well nourished , NAD Head: Atraumatic and normocephalic ENT: External ears and external nose are normal Eyes: Conjunctiva clear, pupils are equal reactive, external ocular motions are intact Neck: Full spontaneous range of motion of the neck Lungs: No respiratory distress Musculoskeletal: No tenderness or deformity Neurologic: No gross focal neurologic deficits Skin: No rashes Psych: Mood and affect are appropriate Const: Vital Signs, click to edit/add: Vital Signs - 24 hr 03/18/25 05:45 03/18/25 05:45 Temperature 98.6 F Pulse Rate [Right Pulse Oximeter] 83 Respiratory Rate 18 Blood Pressure [Ri ght Upper Arm] 143/80 H Pulse Oximetry 93 Oxygen Delivery Me thod Room Air Course Course ED Course: Reviewed prior emergency department visit from February 2023 when patient was seen for a rash in the setting of recent surgery, felt to be related shingles and treated. Patient presents today with flank pain and hematuria, history of kidney stones and this likely represents a kidney stone. Labs and CT scan ordered, Toradol and Zofran ordered for symptom management. Reevaluation(s) Time of Reevaluation #1: 06:14 Reevaluation #1: Urinalysis independently interpreted by me with hematuria but no evidence for infection. CT scan of the abdomen pelvis independently interpreted by me with a 4-5 mm stone in the distal ureter on the left and a 4-5 mm stone in the bladder near the UVJ without upstream dilation. If labs reassuring, plan for discharge with outpatient follow-up with urology. Time of Reevaluation #2: 06:30 Reevaluation #2: Reviewed the radiology interpretation CT scan which agrees with my initial interpretation. Labs indepedently interpreted by me with creatinine 1.1 Patient is stable for discharge with outpatient follow-up. The presence of bilateral stones concerning, however as there is no upstream dilation on the right patient has no right-sided flank pain, I think can be discharged with close follow-up with urology, will discuss with urology. Time of Reevaluation #3: 07:07 Reevaluation #3: Care discussed with Dr. Parks, [facility] regarding presence of bilateral stones. Recommends urgent outpatient follow-up with symptoms are well controlled. Went in to recheck patient, he took a nap while he was here, pain is well controlled. Vital Signs Vital signs: Initial Vital Signs Temperature 98.6 F 03/18/25 05:45 Temperature Source Temporal Artery Scan 03/18/25 05:45 Pulse Rate 83 03/18/25 05:45 Pulse Rhythm Regular 03/18/25 05:45 Respiratory Rate 18 03/18/25 05:45 Blood Pressure 143/80 H 03/18/25 05:45 Blood Pressure Mean 101 03/18/25 05:45 Blood Pressure Position Semi-Fowlers 03/18/25 05:45 Pulse Oximetry 93 03/18/25 05:45 Oxygen Delivery Method Room Air 03/18/25 05:45 Vital Signs Temperature 98.6 F 03/18/25 05:45 Pulse Rate 83 03/18/25 05:45 Respiratory Rate 18 03/18/25 05:45 Blood Pressure 143/80 H 03/18/25 05:45 Pulse Oximetry 93 03/18/25 05:45 Oxygen Delivery Method Room Air 03/18/25 05:45 Temperature 98.6 F 03/18/25 05:45 Pulse Rate 83 03/18/25 05:45 Respiratory Rate 18 03/18/25 05:45 Blood Pressure 143/80 H 03/18/25 05:45 Pulse Oximetry 93 03/18/25 05:45 Oxygen Delivery Method Room Air 03/18/25 05:45 Medications Administered Medications: Discontinued Medications Generic Name Dose Route Start Last Admin Trade Name Freq PRN Reason Stop Dose Admin Ketorolac Tromethamine 15 mg 03/18/25 05:54 03/18/25 06:03 Ketorolac 15 Mg/Ml Inj IVP 03/18/25 05:55 15 mg ONCE ONE Administration Ondansetron HCl 4 mg 03/18/25 05:54 03/18/25 06:03 Ondansetron 2 Mg/Ml Inj IVP 03/18/25 05:55 4 mg ONCE ONE Administration Medical Decision Making Lab Data Labs: Lab Results 03/18/25 03/18/25 Range/Units 05:50 06:03 WBC 9.03 (4.50-11.00) K/uL RBC 4.73 (4.30-5.90) m/uL Hgb 15.3 (13.5-17.5) gm/dL Hct 45.3 (37.0-53.0) % MCV 96 (80-100) fL MCH 32 (26-34) pg MCHC 34 (32-36) gm/dL RDW Coeff of Amelia 12.6 (11.5-15.5) % Plt Count 237 (140-440) K/uL Neut % (Auto) 80.0 H (42.0-72.0) % Lymph % (Auto) 8.2 L (20-44) % [place] % (Auto) 8.1 (0.0-11.0) % Eos % (Auto) 2.3 (0.0-7.0) % Baso % (Auto) 0.6 (0.0-3.0) % Neut # (Auto) 7.20 H (1.7-7.0) K/uL Lymph # (Auto) 0.70 L (0.90-2.90) K/uL [place] # (Auto) 0.70 (0.00-0.90) K/UL Eos # (Auto) 0.21 (0.00-0.50) K/uL Baso # (Auto) 0.05 (0.00-0.30) K/uL Abs Immat Gran (auto) 0.07 (0.00-0.30) K/uL Imm/Tot Granulo (auto) 0.8 % Sodium 135 (135-149) mmol/L Potassium 4.0 (3.6-5.1) mmol/L Chloride 102 (96-114) mmol/L Carbon Dioxide 25 (20-32) mmol/L Anion Gap 8 (7-15) mEq/L BUN 14 (7-30) mg/dL Creatinine 1.1 (0.5-1.5) mg/dL Estimated Creat Clear 81.32 Estimated GFR 78 ml/min Glucose 165 H (60-115) mg/dL Calcium 8.9 (8.4-10.6) mg/dL Urine Color Yellow (Yellow) Urine Appearance Clear (Clear) Urine pH 7.0 (5.0-8.5) Ur Specific [place] 1.025 (1.000-1.030) Urine Protein 1+ A (Negative) Urine Glucose (UA) Negative (Negative) Urine Ketones Negative (Negative) Urine Blood 3+ A (Negative) Urine Nitrite Negative (Negative) Urine Bilirubin Negative (Negative) Urine Urobilinogen 0.2 (0.2-1.0) Ur Leukocyte Esterase Negative (Negative) Urine RBC 10-25 A (0-2) Urine WBC 2-5 (0-5) Ur Squamous Epith Cells Few (None-Few) Amorphous Sediment Few A (None) Urine Bacteria Few A (None) Discharge Plan Discharge Clinical Impression: Calculus of distal left ureter Patient Disposition: Home, Self-Care Condition: Stable Instructions: Ureteral Stones (ED) Additional Instructions: Take Tylenol 1000 mg every 6 hours alternating with ibuprofen 400 mg every 6 hours Take Zofran as needed for nausea for vomiting Take oxycodone as needed pain Follow-up with [facility] [phone] in the next 2-3 days. Your care was discussed with Dr. Parks Activity Level: Activity as Tolerated Discharge Diet: Regular Prescriptions: No Action rosuvastatin 20 mg tablet 20 mg PO QPM aspirin [Adult Low Dose Aspirin] 81 mg tablet,delayed release (DR/EC) 81 mg PO QDAY prednisone 10 mg tablet See Rx Instructions PO QDAY Qty: 30 0RF Rx Instructions: 2 QD x 10 days then 1 QD x 10 days triamcinolone acetonide 0.1 % lotion 1 applic topical BID Qty: 60 1RF hydroxyzine HCl 25 mg tablet 25 mg PO QID PRN (Reason: itching) Qty: 40 0RF metoprolol succinate 50 mg tablet extended release 24 hr 50 mg PO DAILY amlodipine 10 mg tablet 10 mg PO DAILY montelukast 10 mg tablet 10 mg PO QHS Qty: 90 3RF budesonide-formoterol [Symbicort] 160-4.5 mcg/actuation HFA aerosol inhaler 2 puff inhalation DAILY Qty: 10.2 12RF albuterol sulfate 90 mcg/actuation HFA aerosol inhaler 2 puff inhalation QID PRN (Reason: wheezing) Qty: 8.5 12RF metformin 500 mg tablet extended release 24 hr 1,000 mg PO QDAY Qty: 180 0RF Follow Up/Referrals: Renato Ferreira MD [Primary Care Provider, Family Practice] Stand Alone Forms: Work/School Release, [facility] Info Instructions
--- NOTE | 2025-03-18 05:55 | CRLHL7_ITS ---
For Patients: As a result of the Century Cures Act, medical imaging exams and procedure reports are released immediately into your electronic medical record. You may view this report before your referring provider. If you have questions, please contact your health care provider. INDICATION: Flank pain, kidney stone suspected COMPARISON: June 11, 2020 TECHNIQUE: CT examination of the abdomen and pelvis was performed without intravenous contrast. Thin section axial images were obtained from the lung bases through the pubic symphysis. Oral contrast was not administered. Please note that all CT scans at this facility use dose modulation, iterative reconstruction, and/or weight-based dosing when appropriate to reduce radiation dose to as low as reasonably achievable. FINDINGS: LUNG BASES: Linear opacities at the lung bases probably due to atelectasis or scarring.Heart size normal the lung bases. Vascular and valvular calcifications at the heart. LIVER/BILIARY SYSTEM:The liver is normal in size and configuration given the lack of intravenous contrast. There is no visible focal mass and there is no intra- or extra hepatic biliary ductal dilatation.The gall bladder appears normal. ADRENALS: Normal non-contrast appearance KIDNEYS, URETERS and BLADDER:No intrarenal calculi. Left upper pole renal cyst. Left hydronephrosis and left hydroureter. This is due to a 4.5 millimeter calcified calculus in the distal left ureter about 2.5 centimeters from the left UVJ. Also of note, there is a calculus in the right aspect of the bladder which may be at the inner orifice of the right ureterovesical junction measuring 4.5 millimeters. However, there is no upstream dilation on the right. SPLEEN:Normal non-contrast appearance. PANCREAS: Normal non-contrast appearance. RETROPERITONEUM and MESENTERY: There is no mass, adenopathy or aortic aneurysm. Atherosclerotic vascular calcification GASTROINTESTINAL SYSTEM: There is no evidence of diverticulitis, colitis, mechanical obstruction, or appendicitis. The small bowel as visualized appears normal.Diverticulosis PELVIS: No mass, adenopathy or free fluid.Mildly prominent prostate OSSEOUS STRUCTURES and ABDOMINAL WALL: There is an age-appropriate appearance of the osseous structures.Small fat containing umbilical hernia. OTHER: No free fluid or free air. IMPRESSION: 1. No intrarenal calculi on either side. Left upper pole renal cyst. 2. Left hydronephrosis and left hydroureter due to a 4.5 millimeter calcified calculus at the distal left ureter about 2.5 centimeters from the left UVJ. 3. There is a calculus in the posterolateral right bladder, possibly at the inner orifice of the right ureterovesical junction measuring 4.5 millimeters. However, there is no upstream dilation on the right. 4. Other nonacute findings as discussed in the body of the report. Please review the comments. Please note that all CT scans at this facility use dose modulation, iterative reconstruction, and/or weight-based dosing when appropriate to reduce radiation dose to as low as reasonably achievable. Dictated by Raad Miranda MD @ 03/18/2025 6:23:13 AM (Electronically Signed)
[2025-03-18 05:57] LABS: Appearance Urine Clear (Clear)
[2025-03-18] MEDS: ONDANSETRON 2 MG/ML inj 4 MG IVP (06:03)
[2025-03-18 06:09] LABS: Hematocrit* 45.3 % (37.0-53.0); Hemoglobin* 15.3 gm/dL (13.5-17.5); Immature Granulocytes Abs Auto 0.07 K/uL (0.00-0.30); Immature Granulocytes Pct Auto 0.8 %; Mean Corpuscular HGB Conc 34 gm/dL (32-36); Mean Corpuscular Hemoglobin 32 pg (26-34); Mean Corpuscular Volume 96 fL (80-100); RDW Coefficient of Variation % 12.6 % (11.5-15.5); Red Blood Count* 4.73 m/uL (4.30-5.90); White Blood Count* 9.03 K/uL (4.50-11.00)
[2025-03-18 06:13] LABS: Lymphocytes Absolute Auto 0.70 K/uL (0.90-2.90)
[2025-03-18 06:14] LABS: Slide Review Reflex No
[2025-03-18 06:21] LABS: Chloride* 102 mmol/L (96-114)
[2025-03-18 06:22] LABS: Potassium* 4.0 mmol/L (3.6-5.1); Sodium* 135 mmol/L (135-149)
[2025-03-18 06:24] LABS: Blood Urea Nitrogen* 14 mg/dL (7-30); Creatinine* 1.1 mg/dL (0.5-1.5); Est. Creatinine Clearance* 81.32; Estimated Glomerular Filt Rate 78 ml/min
[2025-03-18 06:25] LABS: Anion Gap 8 mEq/L (7-15); Calcium* 8.9 mg/dL (8.4-10.6); Carbon Dioxide* 25 mmol/L (20-32); Glucose* 165 mg/dL (60-115)
== END 2025-03-18 07:28 | disposition home or self-care (01) ==
PROVIDERS: Emergency Provider Family Medicine; PCP Family Medicine
DX: N20.1 Calculus of ureter (principal)
CPT/HCPCS: 36415; 74176; 80048; 81001; 85025; 87086; 96374; 96375; 99284; 99285; J1885; J2405

== ENCOUNTER 2025-05-04 02:33 | Emergency (ER) | payer OTHER, SELFPAY ==
--- OUTSIDE RECORDS SUMMARY | 2025-05-04 02:35 | XMS_ITS | Data Portability ---
Author Organization [place] [facility], [facility] Address [address] [place] [address] Care Team Providers Care Director Biomedical Engineering Name Role Phone SLIM GARCIA Primary Care Provider Assessment Encounter Date Assessment Date Assessment LastModified by Organization Details LastModified Time 03/18/2025 03/18/2025 59 year old male with history of DM and nephrolithiasis presenting in follow up after ER visit for left distal ureteral stone. domillima Not available 03/18/2025 18:33:35 Plan of Treatment Reminders Order Date Submit Date Provider Last Modified By Organization Details Last Modified Time Details Appointments None recorded. Lab None recorded. Referral None recorded. Procedures None recorded. Surgeries None recorded. Imaging XR, abdomen - Please call patient to schedule 2024 025 [facility], [address] [place], [address], 12:27:59 US, kidney - Please call patient to schedule 2024 025 [facility], [address] [place], [address], 04:06:55 US, bladder - Please call patient to schedule 2024 025 [facility], [address] [place], [address], 04:06:55 Medication Orders tamsulosin 0.4 mg capsule 2024 [id number], [address], [place], [place], [phone], 18:26:50 Patient TargetsNo targets recorded. Patient InstructionsNo instructions recorded. Reason for Referral None Reported. Results Created Date Observation Date Name Description Value Unit Range Abnormal Flag Note LastModifiedBy Organization Detail LastModifiedTime 03/18/2003/18/2025 CT, abdom en + pelvi s, w/o contr ast No observ ation record ed. [email or web address] [facility] [address], [place], [address], 03/18/2025 14:35:20 Result Notes None recorded. Problems Name Problem SNOMED Code Status Onset Date Resolution Date Notes Provider Name and Address Organization Details Recorded Time Ureteric stone of lower third of ureter 268204426 Active Av Meeks MD [address] [place] [address],[address], [address] , [facility] 18:12:18 Problem Notes None recorded. Procedures Surgical History Date Name Laterality Status Provider Name and Address Organization Details Recorded Time COMPLEX VISIT completed Av Meeks MD [address] [place] [address],[address], [address], [facility] 03/18/2025 17:54:48 Imaging Results None recorded. Procedure Notes None recorded. Medical Equipment None Reported. Allergies No known drug allergies Medications Name Sig Start Date Stop Date Status Note LastModified by Organization Details LastModified Time amoxicillin 500 mg capsule TK 1 C PO TID FOR 5 DAYS 03/18 completed Not Available Not Available Not Available fluticasone 250 mcg-salmete rol 50 mcg/dose blistr powdr for inhalation INHALE 1 PUFF BY MOUTH TWICE DAILY active Not Available Not Available No t Available atorvastati n 20 mg tablet TAKE 1 TABLET BY MOUTH EVERY DAY active Not Available Not Available No t Available ibuprofen 800 mg tablet TK 1 T PO Q 8 H PRN P active Not Available Not Available No t Available metoprolol succinate ER 50 mg tablet,exte nded release 24 hr TAKE 1 TABLET BY MOUTH EVERY DAY active Not Available Not Available No t Available hydrocodone 5 mg-acetamin ophen 325 mg tablet TK 1/2 TO 1 T EVERY Q 4 TO 6 H PRN FOR PAIN. DO NOT EXCEED 8 TABLETS PER DAY. active Not Available Not Available No t Available amlodipine 5 mg tablet TAKE 1 TABLET BY MOUTH EVERY DAY IN THE EVENING active Not Available Not Available No t Available ketorolac 10 mg tablet TAKE 1 TABLET BY MOUTH EVERY 6 HOURS NEEDED FOR PAIN. MAXIMUM OF 40 MG IN 24 HOURS active Not Available Not Available No t Available tamsulosin 0.4 mg capsule TAKE 1 CAPSULE BY MOUTH EVERY DAY active Not Available Not Available No t Available triamcinolo ne acetonide 0.1 % topical ointment APPLY TOPICALLY TO THE AFFECTED AREA TWICE DAILY active Not Available Not Available No t Available albuterol sulfate HFA 90 mcg/actuati on aerosol inhaler INHALE 2 PUFFS BY MOUTH FOUR TIMES DAILY NEEDED FOR SHORTNESS OF BREATH OR WHEEZING active Not Available Not Available No t Available ondansetron 4 mg disintegrat ing tablet active Not Available Not Available N ot Available metformin ER 500 mg tablet,exte nded release 24 hr TAKE 2 TABLETS BY MOUTH EVERY DAY active Not Available Not Available No t Available oxycodone 5 mg tablet active Not Available Not Available No t Available rosuvastati n 20 mg tablet TAKE 1 TABLET BY MOUTH EVERY NIGHT AT BEDTIME IN PLACE OF ATORVASTA TIN active Not Available Not Available No t Available budesonide- formoterol HFA 160 mcg-4.5 mcg/actuati on aerosol inhaler INHALE 2 PUFFS BY MOUTH TWICE DAILY active Not Available Not Available No t Available Vitals Date Recorded Body height Body mass index (BMI) Body weight Provider Name and Address Organization Details Last Updated DateTime 03/18/2025 182.88 cm 31.2 kg/m2 714692.25 g Odell miles MD, PHD [address] [place] [address], [phone] 03/18/2025 16:44:48 Social History Question Answer Notes LastModified by Organizat ion Details LastModified Time Tobacco Smoking Status Former Smoker Odell Parks MD, PHD [address] [place] [address],[address], [address], [facility] 03/18/2025 16:46:42 When Did You Quit Smoking? 1-5yearssin celastcigar ette 3 Weeks Information not available 03/18/2025 Sex: Unknown Functional Status Question Answer Note LastModified by Organization D etails LastModified Time What is your level of alcohol consumption? Moderate Information not available 03/18/2025 Mental Status None recorded. Family History Nothing Reported. Medical History Condition Response Diabetes Y High Blood Pressure Y Cancer N Kidney Stones Y Lung Disease Y High Cholesterol Y Immunizations Vaccine Type Date Status Note Provider Nam e and Address Organization Details Recorded Time Tdap 02/23/2012 completed Not Available [facility] 03/18/2025 16:23:45 Influenza, split virus, quadrivalent, PF 06/14/2020 completed Not Available [facility] 16:23:45 COVID-19, mRNA, LNP-S, PF, 30 mcg/0.3 mL dose 09/04/2020 completed Not Available [facility] 16:23:45 COVID-19, mRNA, LNP-S, PF, 30 mcg/0.3 mL dose 09/24/2020 completed Not Available [facility] 16:23:45 COVID-19, mRNA, LNP-S, PF, 30 mcg/0.3 mL dose 06/24/2021 completed Not Available [facility] 16:23:45 Tdap 02/03/2023 completed Not Available [facility] 03/18/2025 16:23:45 Past Encounters Encounter ID Performer Location Encounter Start Date Encounter Closed Date Diagnosis/Indication Diagnosis SNOMED-CT Code Diagnosis ICD10 Code Diagnosis IMO Codes Diagnosis Note [id number] Av Meeks MD [facility] [address] [place] [address] 03/18/2025 16:22:31 03/30/2025 17:00:46 Ureteric stone of lower third of ureter 004821404 N20.1 98364088 - Left distal 6mm stone- Stranding around the left kidney- Patient would like to proceed with MET and trial of passage- Will assess for stone passage in 2-3 weeks and plan for ureterosco py if not passed Health Concerns Section Related Observation LastModified by Organization Detai ls LastModified Time None Recorded Concern Status LastModified by Organization Details LastModified Time None Recorded Advance Directives Directive None Recorded Payers Insurance Date Sequence Insurance Name Policy Number Policy Barroso Covered Member ID Barroso Member ID Guarantor Name 03/30/2025 1 [facility] Demarco Maria [id number] Demarco Maria 03/18/2025 1 [facility] [id number] Brunilda Maria [id number] Sebastiansid Arambula Crow Notes Date Note Type Note Provider Name and Address Organization Details Recorded Time 03/18/2025 text/html 59 year old male with PMH HTN, HLD, Asthma, DM II, and Nephrolithiasis. Presenting in follow up after recent ER visit. Found on CT A/P to have left 6mm distal stone. Question of stone on the right side. There appears to be a stone in the bladder. Unclear if @ right UVJ or just dependent on the right side of the bladder. No hydronephrosis on the right side. Asymptomatic and no pain on the right, only complains of pain on the left side. Denies F/C/N/V. Av Meeks MD [address], [place], [address], [facility] 03/18/2025 18:34:13
--- OUTSIDE RECORDS SUMMARY | 2025-05-04 02:35 | XMS_ITS | Continuity of Care Document ---
Author Organization [facility], [facility] Address [address] [place] [address] Care Team Providers Care Woven Wood Shade Assembler Name Role Phone SLIM GARCIA Primary Care [...] Please call patient to schedule 2024 025 [facility], [address] [place], [address], 12:27:59 US, kidney - Please call patient to schedule 2024 025 [facility], [address] [place], [address], 04:06:55 US, bladder - Please call patient to schedule 2024 025 [facility], [address] [place], [address], 5 04:06:55 Medication Orders tamsulosin 0.4 mg capsule 2024 025 [id number], [address], [place], [place], [phone], 18:26:50 Patient TargetsNo targets recorded. Patient InstructionsNo instructions recorded. Reason for Referral None Reported. Results Created Date Observation Date Name Description Value Unit Range Abnormal Flag Note LastModifiedBy Organization Detail LastModifiedTime 03/18/20 25 03/18/2025 CT, abdom en + pelvi s, w/o contr ast No observ ation record ed. [email or web address] [facility] [address], [place], [address], 03/18/2025 14:35:20 Result Notes None recorded. Problems Name Problem SNOMED Code Status Onset Date Resolution Date Notes Provider Name and Address Organization Details Recorded Time Ureteric stone of lower third of ureter 019018010 Active 025 Av Meeks MD [address] [place] [address],[address], [address] , [facility] 18:12:18 Problem Notes None recorded. Procedures Surgical History Date Name Laterality Status Provider Name and Address Organization Details Recorded Time COMPLEX VISIT completed Av Meeks MD [address] [place] [address],[address], [address], [facility] 03/18/2025 17:54:48 Imaging Results None recorded. Procedure [...] Updated DateTime 03/18/2025 182.88 cm 31.2 kg/m2 054608.25 g Odell miles MD, PHD [address] [place] [address], [phone] 03/18/2025 16:44:48 Social History Question Answer Notes LastModified by Organizat ion Details LastModified Time Tobacco Smoking Status Former Smoker Odell Parks MD, PHD [address] [place] [address],[address], [address], [facility] 03/18/2025 16:46:42 When Did You Quit Smoking? 1-5yearssin celastcigar ette 3 Weeks Information not available 03/18/2025 Sex: Unknown Functional Status Question Answer Note LastModified by Organization D etails LastModified Time What is your level of alcohol consumption? Moderate Information not available 03/18/2025 Mental Status None recorded. Family History Nothing Reported. Medical History Condition Response High Blood Pressure Y Kidney Stones Y Cancer N Lung Disease Y High Cholesterol Y Diabetes Y Immunizations Vaccine Type Date Status Note Provider Nam e and Address Organization Details Recorded Time Tdap 02/23/2012 completed Not Available [facility] 03/18/2025 16:23:45 Influenza, split virus, quadrivalent, PF 06/14/2020 completed Not [facility] 16:23:45 COVID-19, mRNA, LNP-S, PF, 30 mcg/0.3 mL dose 09/04/2020 completed Not Available [facility] 16:23:45 COVID-19, mRNA, LNP-S, PF, 30 mcg/0.3 mL dose 09/24/2020 completed Not [facility] 16:23:45 COVID-19, mRNA, LNP-S, PF, 30 mcg/0.3 mL dose 06/24/2021 completed Not [facility] 16:23:45 Tdap 02/03/2023 completed Not Available [facility] 03/18/2025 16:23:45 Past Encounters Encounter ID Performer Location Encounter Start Date Encounter Closed Date Diagnosis/Indication Diagnosis SNOMED-CT Code Diagnosis ICD10 Code Diagnosis IMO Codes Diagnosis Note [id number] Av Meeks MD [facility] [address] [place] [address] 03/18/2025 16:22:31 03/30/2025 17:00:46 Ureteric stone of lower third of ureter 968034855 N20.1 82797277 - Left distal 6mm stone- Stranding around the left kidney- Patient would like to proceed with MET and trial of passage- Will assess for stone passage in 2-3 weeks and plan for ureterosco py if not passed Health Concerns Section Related Observation LastModified by Organization Shabnam ls LastModified Time None Recorded Concern Status LastModified by Organization Details LastModified Time None Recorded Payers Encounter Date Sequence Insurance Name Policy Number Policy Barroso Covered Member ID Barroso Member ID Guarantor Name 03/18/2025 1 [facility] Demarco Maria [id number] Demarco Maria Notes Date Note Type Note Provider Name [...] side. Denies F/C/N/V. Av Meeks MD [address], [place], [address], [facility] 03/18/2025 18:34:13
--- OUTSIDE RECORDS SUMMARY | 2025-05-04 02:35 | XMS_ITS | Clinical Summary ---
Author Organization [facility] Address [address] [place] [id number] Care Team Providers Care Lead Shop Operator Name Role Phone Shahana Ochoa DO Primary Care Provider [phone] Allergies No known active allergies Medications montelukast (SINGULAIR) 10 mg tabletIndications: Seasonal allergic rhinitis due to pollen Take 1 tablet by mouth at bedtime. 30 tablet 11 8 Active aspirin (ECOTRIN) 81 mg enteric coated tabletIndications: TIA (transient ischemic attack) Take 1 Tablet (81 mg) by mouth once daily with a meal. 0 3 Active triamcinolone 0.1 % ointmentIndication s:Rash and other nonspecific skin eruption APPLY TOPICALLY TO THE AFFECTED AREA TWICE DAILY 454 g 4 Active amLODIPine (NORVASC) 10 mg tabletIndications: HTN (hypertension) Take 1 Tablet (10 mg) by mouth once daily. 90 Tablet 5 Active metFORMIN (GLUCOPHAGE) 500 mg tabletIndications: Controlled type 2 diabetes mellitus without complication, without long-term current use of insulin (HC) Take 1 Tablet (500 mg) by mouth two times daily with meals. 180 Tablet 3 5 Active metoprolol succinate (TOPROL XL) 100 mg Sustained-Release tabletIndications: HTN (hypertension) Take 1 Tablet (100 mg) by mouth once daily. 90 Tablet 3 5 Active rosuvastatin (CRESTOR) 20 mg tabletIndications: Hyperlipidemia, unspecified hyperlipidemia type Take 1 Tablet (20 mg) by mouth at bedtime. In place of atorvastatin. 90 Tablet 3 5 Active budesonide-formote roL (SYMBICORT,BREYNA) 160-4.5 mcg/actuation (160-4.5 mcg each actuation) inhalerIndications :Mild intermittent asthma without complication (HC) Inhale 2 Puffs by mouth two times daily. 10.2 g 3 5 Active albuterol HFA (PRO-AIR; VENTOLIN; PROVENTIL) 90 mcg/actuation inhalerIndications :Bronchospasm INHALE 2 PUFFS BY MOUTH FOUR TIMES DAILY NEEDED FOR SHORTNESS OF BREATH OR WHEEZING 6.7 g 3 5 Active Active Problems Problem Noted Date [...] Encounters Date Type Department Care Team Description 03/25/2025 2:15 PM CDT Ancillary Procedure [facility] [address] [place] [address] 03/25/2025 Travel 03/21/2025 Refill [facility] [address] [place] [address] Shahana Ochoa DO Refill Request (Albuterol Hfa) 03/18/2025 Orders Only [facility] [address] [place] [address] Robson Lamb MD <No scans attached> 03/17/2025 12:35 PM CDT Office Visit [facility] [address] [place] [place] [place] [address] Devang Le MD Musculoskeletal Problem (Follow-up LEFT upper extremity weakness ) 03/17/2025 Travel 02/24/2025 12:35 PM CDT Office Visit [facility] [address] [place] [facility] [place] [place] [address] Devang Le MD Musculoskeletal Problem (Consultation for LEFT Upper Extremity weakness x 1-2 months) 02/24/2025 Travel 02/18/2025 Telephone [facility] [address] [place] [address] Shahana Ochoa DO Referral (Dx) 02/18/2025 Telephone [facility] [address] [place] [place] [place] [address] Shahana Ochoa DO Appointment Request 02/11/2025 12:30 PM CDT Ancillary Procedure [facility] [address] [place] [facility] [place] [place] [address] 02/11/2025 11:45 AM CDT Ancillary Procedure [facility] [address] [place] [address] 02/11/2025 Travel 02/04/2025 Telephone [facility] [address] [place] [id number] Shahana Ochoa DO Lung Cancer Screening - CT Result 02/03/2025 2:00 PM CDT Ancillary Procedure [facility] [address] [place] [place] [place] [address] 02/03/2025 Travel from Last 3 Months Immunizations Immunization Administration Dates Next Due COVID-19 vaccine ([employer] 30mcg/0.3mL) [place] 06/24/2021,09/24/2020,09/04/2020 Influenza, IIV4 06/14/2020 Td (Age >=7 [...] Used Date Smoking Tobacco: Former Cigarettes 1 28.6 S tarted: 10/14/1996 Smokeless Tobacco: Never Tobacco [...] on file 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 Gender Identity Not on file Sexual Orientation [...] PCV) 1986 Colonoscopy through age 75 2012 RSV vaccine for adults or (1 - Risk 50-74 years 1-dose series) 2017 Zoster (shingles) series for age 50+ (1 of 2) 2017 Depression screening for age 12+ 08/28/2024 08/29/2023, 08/29/2023, 09/28/2022, Additional history exists Influenza Vaccine (#1) 2025 06/14/2020 BMI (ht and wt on same day) for age 18+ 01/26/2026 01/26/2025, 02/29/2024, 02/06/2023, Additional history exists Low Dose CT (for lung CA) ag e 50-80 02/03/2026 02/03/2025 Lipids for age 45-75 01/26/2030 01/26/2025, 02/29/2024, 08/29/2023, Additional history exists Tetanus booster 02/03/2033 02/03/2023, 02/03, 01/25/1998 HIV for age 15-65 Completed 05/23/2022 Hepatitis C screening for ag e 18-79 Completed 05/23/2022 Procedures Procedure Name Priority Date/Time Associated Diagnosis Comments XR SPINE CERVICAL 4 OR 5 VIEWS Routine 03/25/2025 2:27 PM CDT Pain of cervical spine MR SPINE THORACIC WO Routine 02/11/2025 12:58 PM CDT Muscle weakness of left upper extremity MR SPINE CERVICAL WO Routine 02/11/2025 12:15 PM CDT Muscle weakness of left upper extremity CT CHEST SCREENING LOW DOSE WO CONTRAST Routine 02/03/2025 2:19 PM CDT Encounter for screening for lung cancer LIPID PANEL W REFLEX MEASURED LDL Routine 01/26/2025 2:26 PM CDT Hyperlipidemia, unspecified hyperlipidemia type ANTI HIV 1/2 Routine 05/23/2022 3:43 PM ENGINE COWLING INSTALLER Encounter for screening for HIV ANTI HCV Routine 05/23/2022 3:43 PM ENGINE COWLING INSTALLER Need for hepatitis C screening test from Last 3 Months or Most Recently Relevant to Health Maintenance Results * XR SPINE CERVICAL 4 OR 5 VIEWS (03/25/2025 2:27 PM CDT) Anatomical Region Laterality Modality Spine, CERVICAL SPINE Digital Ra diography 03/25/2025 2:27 PM CDT Impressions 03/27/2025 9:22 AM CDT Vertebral body heights are maintained. Multilevel loss of disc height. Multilevel facet disease. Lung apices are unremarkable. No abnormal motion on flexion or extension views. Narrative 03/27/2025 9:22 AM CDT For Patients: As a result of the Century Cures Act, medical imaging exams and procedure reports are released immediately into your electronic medical record. You may view this report before your referring provider. If you have questions, please contact your health care provider. EXAM: XR SPINE CERVICAL 4 OR 5 VIEWS LOCATION: [facility] DATE: 03/25/2025 INDICATION: Pain Of Cervical Spine COMPARISON: None. Procedure Note Mathew Mendoza MD - 03/27/2025 For Patients: As a result of the Cures Act, medical imagingexams and procedure reports are released immediately into your electronicmedical record. You may view this report before your referring provider.If you have questions, please contact your health care provider. EXAM: XR SPINE CERVICAL 4 OR 5 VIEWS LOCATION: [facility] DATE: 03/25/2025 INDICATION: Pain Of Cervical Spine COMPARISON: None. IMPRESSION: Vertebral body heights are maintained. Multilevel loss of disc height.Multilevel facet disease. Lung apices are unremarkable. No abnormal motionon flexion or extension views. Robson Lamb MD GENERAL IMAGING Final Result * MR SPINE THORACIC WO (02/11/2025 12:58 [...] extrusion at T12-L1 indents the cord and twnr-yl-cyuwochuli narrows the spinal canal. Multilevel facet arthropathy, [...] disc extrusion at T12-L1 indents the cord zwcvjtj-fb-pmiyjqvszp narrows the spinal canal. Multilevel facet arthropathy,advanced [...] MD @ 02/12/2025 9:37:01 AM (Electronically Signed) us Shahana Ochoa DO [...] Mild facet arthropathy. Mild central canal narrowing. Jvbq-qe-edtgnide left without right neural foraminal narrowing. C4-5: Iebx-yz-zhtkzkny disc height loss. Posterior disc osteophyte complex. Uncinate spurring. Mild spinal canal narrowing. Severe right and moderately severe left neural foraminal stenosis. C5-6: Moderate disc height loss. Posterior disc osteophyte complex. Ligamentum flavum thickening. Uncinate spurring. Moderate spinal canal narrowing. Severe bilateral neural foraminal stenosis. C6-7: Severe disc height loss. Mztc-wy-whepatlc vertebral body edema. Posterior disc osteophyte complex. [...] Uncinatespurring. Mild facet arthropathy. Mild central canal narrowing.Hdaz-es-uaaecjzh left without right neural foraminal narrowing. C4-5: Bmof-uh-pevbltuz disc height loss. Posterior disc osteophytecomplex. Uncinate spurring. Mild spinal canal narrowing. Severe right andmoderately severe left neural foraminal stenosis. C5-6: Moderate disc height loss. Posterior disc osteophyte complex.Ligamentum flavum thickening. Uncinate spurring. Moderate spinal canalnarrowing. Severe bilateral neural foraminal stenosis. C6-7: Severe disc height loss. Mwki-kx-kwumftzf vertebral body edema.Posterior disc osteophyte complex. Superimposed [...] MD @ 02/12/2025 9:23:36 AM (Electronically Signed) Shahana Ochoa DO MR Final Result * CT CHEST SCREENING LOW DOSE WO CONTRAST [[id number]] (02/03/2025 2:19 PM CDT) Anatomical Region Laterality [...] Dictated by: Aneudy Mcclure MD @02/03/2025 2:39:09 PM/haroldo Narrative 02/03/2025 3:37 PM CDT For Patients: [...] Atherosclerotic changes. MUSCULOSKELETAL: No fracture. us Shahana Skylar Shaqra DO CT Final Result * (ABNORMAL) LIPID PANEL W REFLEX MEASURED LDL (01/26/2025 2:26 PM CDT) CHOLESTEROL, TOTAL 164 <200 mg/dL 01/27/2025 4:07 AM CDT [facility] TRIGLYCERIDES 241(H) <150 mg/dL 01/27/2025 4:07 AM CDT [facility] Comment: If a non-fasting specimen was collected, consider repeat triglyceride testing on a fasting specimen if clinically indicated. Radha et al. J. of Clin. Lipidol. 2015;9:129-169. HDL CHOLESTEROL 73 > OR = 40 mg/dL 01/27/2025 4:07 AM CDT [facility] NON HDL CHOLESTEROL 91 <130 mg/dL (calc) 01/27/2025 4:07 AM Revetto[facility] Comment: For patients with diabetes plus 1 major ASCVD risk factor, treating to a non-HDL-C goal of <100 mg/dL (LDL-C of <70 mg/dL) is considered a therapeutic option. CHOL/HDLC RATIO 2.2 <5.0 (calc) 01/27/2025 4:07 AM [facility] LDL-CHOLESTEROL 61 mg/dL (calc) 01/27/2025 4:07 AM [facility] Comment: Reference range: <100 Desirable range <100 mg/dL for primary prevention; <70 mg/dL for patients with CHD or diabetic patients with > or = 2 CHD risk factors. LDL-C is now calculated using the Jaime-Trinity calculation, which is a validated novel method providing better accuracy than the Friedewald equation in the estimation of LDL-C. Jaime GIVENS et al. MAURO. 2013;310(19): 9166-5003 (http://education.[employer] Solar/faq/MSJ530) Blood BLOOD SPECIMEN / Unknown [facility] / Unknown 01/26/2025 2:26 PM CDT 01/26/2025 2:26 PM CDT us Shahana Skylar Shaqra DO CHEMISTRY Final Result [facility] [address] [place] [phone], * ANTI HCV (05/23/2022 3:43 PM ENGINE COWLING INSTALLER) HEPATITIS C ANTIBODY Non-React anmol Non-React anmol 05/25/2022 6:22 PM ENGINE COWLING INSTALLER [facility] Comment:Antibodies to HCV no t detected; does not exclude the possibility of exposure to HCV. Blood BLOOD SPECIMEN / Unknown Venipuncture / Unknown 05/23/2022 3:43 PM ENGINE COWLING INSTALLER 05/23/2022 3:46 PM ENGINE COWLING INSTALLER [employer] Final Resu lt [facility] [address] [place] [address], [place] * ANTI HIV 1/2 (05/23/2022 3:43 PM ENGINE COWLING INSTALLER) Pathologist [facility] HIV-1/HIV-2 ANTIBODY Non-Reacti ve Non-Reacti ve 05/25/2022 6:22 PM ENGINE COWLING INSTALLER [facility] Comment:HIV-1 p24 and HIV-1/ HIV-2 Ab not detected. Blood BLOOD SPECIMEN / Unknown Venipuncture / Unknown 05/23/2022 3:43 PM ENGINE COWLING INSTALLER 05/23/2022 3:46 PM ENGINE COWLING INSTALLER P[employer] Final Resu lt [facility] [address] [place] [address], [place] from Last 3 Months or Most Recently Relevant to Health Maintenance Insurance [facility] Care Teams Lead Shop Operator Relationship Specialty Start Date End Date Shahana Ochoa DO [address] [place] [address] PCP - General Family Practice 08/29/23
[2025-05-04 02:41] VITALS: BP 118/81; RESP 23; O2SAT 91; BMI 32.6
--- NOTE | 2025-05-04 02:42 | ED.GENADULT ---
HPI - General Adult General Time Seen by Provider: 02:42 Date Seen: 05/04/25 Chief complaint: Shoulder Injury/Pain Stated complaint: right shoulder pain Time Seen by Provider: 05/04/25 02:41 Source: patient, RN notes reviewed and old records reviewed Mode of arrival: ambulatory Limitations: no limitations History of Present Illness HPI narrative: 59-year-old male with history of diabetes, hypertension, hyperlipidemia, asthma who presents today with right shoulder pain. Patient notes he was shoveling and also took a remote sensing technologist out yesterday, gradual onset of right shoulder pain since then. No specific injury. Pain is on the side in front of the shoulder, worse with movement. No chest pain or shortness of breath. Took a muscle relaxant for this but no other medications including no Tylenol or ibuprofen. Related Data Home Medications ?Medication ?Instructions ?Recorded ?Confirmed amlodipine 10 mg tablet 10 mg PO DAILY 09/25/22 03/18/25 metoprolol succinate 50 mg 50 mg PO DAILY 09/25/22 03/18/25 tablet,extended release 24 hr rosuvastatin 20 mg tablet 20 mg PO QPM 02/06/23 03/18/25 aspirin 81 mg tablet,delayed 81 mg PO QDAY 04/13/23 03/18/25 release (Adult Low Dose Aspirin) Previous Rx's ?Medication ?Instructions ?Recorded hydroxyzine HCl 25 mg tablet 25 mg PO QID PRN itching #40 tabs 03/28/23 prednisone 10 mg tablet See Rx Instructions PO QDAY #30 04/13/23 tabs triamcinolone acetonide 0.1 % 1 applic topical BID #60 mL 04/13/23 lotion albuterol sulfate 90 mcg/actuation 2 puff inhalation QID PRN wheezing 08/10/23 aerosol inhaler #8.5 grams budesonide-formoterol HFA 160 2 puff inhalation DAILY #10.2 grams 08/10/23 mcg-4.5 mcg/actuation aerosol inhaler (Symbicort) montelukast 10 mg tablet 10 mg PO QHS #90 tabs 08/10/23 metformin 500 mg tablet,extended 1,000 mg (2 x 500 mg) PO QDAY #180 07/11/24 release 24 hr tabs Allergies Allergy/AdvReac Type Severity Reaction Status Date / Time No Known Drug Allergies Allergy Verified 03/18/25 05:47 PFSH PFSH Medical History (Updated 05/04/25 @ 03:13 by aZn Flanagan MD) TIA (transient ischemic attack) ?G45.9 - Transient cerebral ischemic attack, unspecified (ICD-10) Type 2 diabetes mellitus, without long-term current use of insulin ?E11.9 - Type 2 diabetes mellitus without complications (ICD-10) Primary hypertension ?I10 - Essential (primary) hypertension (ICD-10) Mixed hyperlipidemia ?E78.2 - Mixed hyperlipidemia (ICD-10) Mild asthma without complication ?J45.909 - Unspecified asthma, uncomplicated (ICD-10) Surgical History (Updated 03/31/23 @ 21:27 by Aneudy Gentile MD) Fracture of ankle, lateral malleolus, left, closed (02/09/23) ?S82.62XA - Displaced fracture of lateral malleolus of left fibula, initial encounter for closed fracture (ICD-10) History of right hemicolectomy (03/17/12) ?Z90.49 - Acquired absence of other specified parts of digestive tract (ICD-10) Social History (Updated 04/15/23 @ 19:46 by Aneudy Gentile MD) Narrative: , two kids, civil engineering drafter, 1 ppd smoker, social ETOH What is your current living situation?: I presently have a place to live Problems where you live: no known problems Problems where you live details: n/a In the past 12 months, utilities in danger of being shut off: no In past 12 months, lack of transportation kept you from medical appts, meetings, work, or getting things needed for daily living: no In the past 12 mos, have been you worried that your food would run out before you had money to buy more?: never true In the past 12 mos, the food you bought just didn't last and you didn't have money to buy more?: never true Highest level of school completed/degree received: Associate degree: occupational, technical, vocational program Smoking Status: Former smoker What tobacco products do you use: cigarettes Smoking quit date/years: <= 15 years ago Do you use any of these nicotine containing products: None Second hand tobacco smoke exposure: No How often do you have a drink containing alcohol: 2-3 times a week Alcohol type: beer How many standard drinks containing alcohol do you have on a typical day: 3 or 4 How often do you have six or more drinks on one occasion: Monthly AUDIT-C Alcohol total score: 6 Non-prescribed substance use: denies use Caffeine: Yes How often does anyone, including family, friends and others, physically hurt you: never How often does anyone, including family, friends and others, insult or talk down to you: never How often does anyone, including family, friends and others, threaten you with harm: never How often does anyone, including family, friends and others, scream or curse at you: never service: No Exam Narrative: Exam Narrative: General: well nourished , NAD Head: Atraumatic and normocephalic ENT: External ears and external nose are normal Eyes: Conjunctiva clear, pupils are equal reactive, external ocular motions are intact Neck: Full spontaneous range of motion of the neck Lungs: No respiratory distress Musculoskeletal: Tenderness of the lateral and anterior shoulder. Pain with passive external rotation and abduction, marked pain with resisted abduction, no joint effusion, warmth or redness Neurologic: No gross focal neurologic deficits Skin: No rashes Psych: Mood and affect are appropriate Const: Vital Signs, click to edit/add: Vital Signs - 24 hr 05/04/25 02:41 Respiratory Rate 23 Blood Pressure [Le ft Upper Arm] 118/81 Pulse Oximetry 91 Oxygen Delivery Me thod Room Air Course Course ED Course: Additional records reviewed: Physical from April 2023 which addressed diabetes, hypertension, history of TIA, no other specific symptoms at that time Additional history from: Care impacted by: Diabetes, hypertension Testing considered but not performed: Consider shoulder x-ray but no acute trauma, low risk for acute bony abnormality Patient seen and examined, presents today with right shoulder pain. No definite trauma but was doing some lifting and snow shoveling today. Gradual onset of pain. On exam, holds the arm at the side, pain with attempted external rotation and passive and resisted abduction. Tenderness of the anterior shoulder and lateral shoulder. No joint effusion, redness, or warmth to suggest crystal arthropathy or septic arthritis. Symptoms are most consistent with rotator cuff injury. Patient is given a sling, Toradol in the emergency department, oxycodone and prednisone for home. Follow-up with primary care for physical therapy and further evaluation including possible MRI if symptoms do not significantly improve. Vital Signs Vital signs: Initial Vital Signs Temperature Source Temporal Artery Scan 05/04/25 02:41 Respiratory Rate 23 05/04/25 02:41 Blood Pressure 118/81 05/04/25 02:41 Blood Pressure Mean 93 05/04/25 02:41 Blood Pressure Position Sitting 05/04/25 02:41 Pulse Oximetry 91 05/04/25 02:41 Oxygen Delivery Method Room Air 05/04/25 02:41 Vital Signs Respiratory Rate 23 05/04/25 02:41 Blood Pressure 118/81 05/04/25 02:41 Pulse Oximetry 91 05/04/25 02:41 Oxygen Delivery Method Room Air 05/04/25 02:41 Respiratory Rate 23 05/04/25 02:41 Blood Pressure 118/81 05/04/25 02:41 Pulse Oximetry 91 05/04/25 02:41 Oxygen Delivery Method Room Air 05/04/25 02:41 Discharge Plan Discharge Clinical Impression: Tendinopathy of right rotator cuff Instructions: Rotator Cuff Tendinitis (ED) Additional Instructions: Wear sling for comfort but take your arm out at least every 2 hours and while leaning forward about 45?, let the arm pain to gravity and make 10 big circles in each direction to prevent ?frozen shoulder? Follow-up with your primary care provider in 5-7 days to discuss physical therapy and further evaluation and treatment if needed Activity Level: Activity as Tolerated Discharge Diet: Regular Prescriptions: No Action rosuvastatin 20 mg tablet 20 mg PO QPM aspirin [Adult Low Dose Aspirin] 81 mg tablet,delayed release (DR/EC) 81 mg PO QDAY prednisone 10 mg tablet See Rx Instructions PO QDAY Qty: 30 0RF Rx Instructions: 2 QD x 10 days then 1 QD x 10 days triamcinolone acetonide 0.1 % lotion 1 applic topical BID Qty: 60 1RF hydroxyzine HCl 25 mg tablet 25 mg PO QID PRN (Reason: itching) Qty: 40 0RF metoprolol succinate 50 mg tablet extended release 24 hr 50 mg PO DAILY amlodipine 10 mg tablet 10 mg PO DAILY montelukast 10 mg tablet 10 mg PO QHS Qty: 90 3RF budesonide-formoterol [Symbicort] 160-4.5 mcg/actuation HFA aerosol inhaler 2 puff inhalation DAILY Qty: 10.2 12RF albuterol sulfate 90 mcg/actuation HFA aerosol inhaler 2 puff inhalation QID PRN (Reason: wheezing) Qty: 8.5 12RF metformin 500 mg tablet extended release 24 hr 1,000 mg PO QDAY Qty: 180 0RF Follow Up/Referrals: Renato Ferreira MD [Primary Care Provider, Family Practice] Stand Alone Forms: Amaruth Info Instructions
== END 2025-05-04 03:44 | disposition home or self-care (01) ==
PROVIDERS: Emergency Provider Family Medicine; PCP Family Medicine
DX: M67.813 Other specified disorders of tendon, right shoulder (principal); E11.9 Type 2 diabetes mellitus without complications; I10 Essential (primary) hypertension; Z87.891 Personal history of nicotine dependence; Z79.84 Long term (current) use of oral hypoglycemic drugs
CPT/HCPCS: 96372; 96374; 99284; J1885

== ENCOUNTER 2025-05-07 06:27 | Emergency (ER) | payer OTHER, SELFPAY ==
--- OUTSIDE RECORDS SUMMARY | 2025-05-07 06:29 | XMS_ITS | Continuity of Care Document ---
Author Organization [facility], [facility] Address [address] [place] [address] Care Team Providers Care Jewel Inspector Name Role Phone SLIM GARCIA Primary Care [...] Please call patient to schedule 2024 025 [facility], [address] [place], [address], 5 04:42:56 US, kidney - Please call patient to schedule 2024 025 [facility], [address] [place], [address], 5 04:06:55 US, bladder - Please call patient to schedule 2024 025 [facility], [address] [place], [address], 5 04:06:55 Medication Orders tamsulosin 0.4 mg capsule 2024 025 [id number], [address], [place], [place], [phone], 18:26:50 Patient TargetsNo targets recorded. Patient InstructionsNo instructions recorded. Reason for Referral None Reported. Results Created Date Observation Date Name Description Value Unit Range Abnormal Flag Note LastModifiedBy Organization Detail LastModifiedTime 03/18/20 25 03/18/2025 CT, abdom en + pelvi s, w/o contr ast No observ ation record ed. [email or web address] [facility] [address], [place], [address], 03/18/2025 14:35:20 Result Notes None recorded. Problems Name Problem SNOMED Code Status Onset Date Resolution Date Notes Provider Name and Address Organization Details Recorded Time Ureteric stone of lower third of ureter 302705914 Active Av Meeks MD [address] [place] [address],[address], [address] , [facility] 18:12:18 Problem Notes None recorded. Procedures Surgical History Date Name Laterality Status Provider Name and Address Organization Details Recorded Time COMPLEX VISIT completed Av Meeks MD [address] [place] [address],[address], [address], [facility] 03/18/2025 17:54:48 Imaging Results None recorded. [...] Updated DateTime 03/18/2025 182.88 cm 31.2 kg/m2 598053.25 g Odell miles MD, PHD [address] [place] [address], [phone], [facility] 03/18/2025 16:44:48 Social History Question Answer Notes LastModified by Organizat ion Details LastModified Time Tobacco Smoking Status Former Smoker Odell Parks MD, PHD [address] [place] [address], [phone], [facility] 03/18/2025 16:46:42 When Did You [...] Recorded Time Tdap 02/23/2012 completed Not Available [facility] 03/18/2025 16:23:45 Influenza, split virus, quadrivalent, PF 06/14/2020 completed Not Available [facility] 16:23:45 COVID-19, mRNA, LNP-S, PF, 30 mcg/0.3 mL dose 09/04/2020 completed Not Available [facility] 16:23:45 COVID-19, mRNA, LNP-S, PF, 30 mcg/0.3 mL dose 09/24/2020 completed Not Available [facility] 16:23:45 COVID-19, mRNA, LNP-S, PF, 30 mcg/0.3 mL dose 06/24/2021 completed Not Available [facility] 16:23:45 Tdap 02/03/2023 completed Not Available [facility] 03/18/2025 16:23:45 Past Encounters Encounter ID Performer Location Encounter Start Date Encounter Closed Date Diagnosis/Indication Diagnosis SNOMED-CT Code Diagnosis ICD10 Code Diagnosis IMO Codes Diagnosis Note [id number] Av Meeks MD [facility] [address] [place] [address] 03/18/2025 16:22:31 03/30/2025 17:00:46 Ureteric stone of lower third of ureter 716111329 N20.1 [id number] - Left distal 6mm stone- Stranding around [...] Barroso Member ID Guarantor Name 03/18/2025 1 [facility] Demarco Maria [id number] Demarco Maria Notes Date Note Type Note [...] left side. Denies F/C/N/V. Av Meeks MD [address] [place] [address],[address], [place], [address], [facility] 03/18/2025 18:34:13
--- OUTSIDE RECORDS SUMMARY | 2025-05-07 06:29 | XMS_ITS | Clinical Summary ---
Author Organization [facility] Address [address] [place] [address] Care Team Providers Care Bottler Helper Name Role Phone Shahana Ochoa DO Primary Care Provider [phone] Allergies No known active allergies Medications montelukast [...] Description 03/25/2025 2:15 PM CDT Ancillary Procedure [facility] [address] [place] [address] 03/25/2025 Travel 03/21/2025 Refill [facility] [address] [place] [address] Shahana Ochoa DO Refill Request (Albuterol Hfa) 03/18/2025 Orders Only [facility] [address] [facility] [address] [facility] [address] [place] [address] Robson Lamb MD <No scans attached> 03/17/2025 12:35 PM CDT Office Visit [facility] [address] [place] [address] Devang Le MD Musculoskeletal Problem (Follow-up LEFT upper extremity weakness ) 03/17/2025 Travel 02/24/2025 12:35 PM CDT Office Visit [facility] [address] [place] [address] Devang Le MD Musculoskeletal Problem (Consultation for LEFT Upper Extremity weakness x 1-2 months) 02/24/2025 Travel 02/18/2025 Telephone [facility] [address] [place] [address] Shahana Ochoa DO Referral (Dx) 02/18/2025 Telephone [facility] [address] [place] [address] Shahana Ochoa DO Appointment Request 02/11/2025 12:30 PM CDT Ancillary Procedure [facility] [address] [place] [address] 02/11/2025 11:45 AM CDT Ancillary Procedure [facility] [address] [place] [address] 02/11/2025 Travel from Last 3 Months Immunizations Immunization Administration Dates Next Due COVID-19 vaccine ([employer]ak[employer] 30mcg/0.3mL) PF, V 06/24/2021,09/24/2020,09/04/2020 Influenza, IIV4 06/14/2020 Td (Age >=7 [...] on file Legal Sex Male 5:26 AM SANITARIAN Gender Identity Not on file Sexual Orientation [...] 09/28/2022, Additional history exists COVID-19 vaccine series (2024- season) 2025 06/24/2021, 09/24/2020, 09/04/2020 Influenza Vaccine [...] ANTI HIV 1/2 Routine 05/23/2022 3:43 PM SANITARIAN Encounter for screening for HIV ANTI HCV Routine 05/23/2022 3:43 PM SANITARIAN Need for hepatitis C screening test from [...] SPINE CERVICAL 4 OR 5 VIEWS LOCATION: [facility] DATE: 03/25/2025 INDICATION: Pain Of Cervical Spine [...] SPINE CERVICAL 4 OR 5 VIEWS LOCATION: [facility] DATE: 03/25/2025 INDICATION: Pain Of Cervical Spine [...] extrusion at T12-L1 indents the cord and kixo-am-zmowitmabl narrows the spinal canal. Multilevel facet arthropathy, [...] result of the Century Cures Act, medical imagingexams and procedure reports [...] disc extrusion at T12-L1 indents the cord vorgvfr-xp-holpzfqpxs narrows the spinal canal. Multilevel facet arthropathy,advanced [...] 02/12/2025 9:37:01 AM (Electronically Signed) us Shahana Skylar Tuckermalvin DO MR Final Result * MR SPINE [...] Mild facet arthropathy. Mild central canal narrowing. Cgsf-cy-cvowttpf left without right neural foraminal narrowing. C4-5: Sazv-pz-ajekahje disc height loss. Posterior disc osteophyte complex. Uncinate spurring. Mild spinal canal narrowing. Severe right and moderately severe left neural foraminal stenosis. C5-6: Moderate disc height loss. Posterior disc osteophyte complex. Ligamentum flavum thickening. Uncinate spurring. Moderate spinal canal narrowing. Severe bilateral neural foraminal stenosis. C6-7: Severe disc height loss. Flpr-cm-qqkeskdk vertebral body edema. Posterior disc osteophyte complex. [...] Uncinatespurring. Mild facet arthropathy. Mild central canal narrowing.Ffea-mh-akljbcih left without right neural foraminal narrowing. C4-5: Bgol-ed-oksjaogm disc height loss. Posterior disc osteophytecomplex. Uncinate spurring. Mild spinal canal narrowing. Severe right andmoderately severe left neural foraminal stenosis. C5-6: Moderate disc height loss. Posterior disc osteophyte complex.Ligamentum flavum thickening. Uncinate spurring. Moderate spinal canalnarrowing. Severe bilateral neural foraminal stenosis. C6-7: Severe disc height loss. Yoxp-qr-tqqfvxgb vertebral body edema.Posterior disc osteophyte complex. Superimposed [...] @ 02/12/2025 9:23:36 AM (Electronically Signed) Shahana Skylar Tuckerq DO MR Final Result * CT CHEST SCREENING LOW DOSE WO CONTRAST [[id number]] (02/03/2025 2:19 PM CDT) Anatomical Region Laterality [...] low as reasonably achievable. Dictated by: Aneudy Mccluer MD @02/03/2025 2:39:09 PM/jj Narrative 02/03/2025 3:37 PM CDT For Patients: [...] changes. MUSCULOSKELETAL: No fracture. us Shahana Skylar Tuckerqra DO CT Final Result * (ABNORMAL) LIPID PANEL W REFLEX MEASURED LDL (01/26/2025 2:26 PM CDT) CHOLESTEROL, TOTAL 164 <200 mg/dL 01/27/2025 4:07 AM CDT [facility] TRIGLYCERIDES 241(H) <150 mg/dL 01/27/2025 4:07 AM [facility] Comment: If a non-fasting specimen was collected, consider repeat triglyceride testing on a fasting specimen if clinically indicated. Radha et al. J. of Clin. Lipidol. 2015;9:129-169. HDL CHOLESTEROL 73 > OR = 40 mg/dL 01/27/2025 4:07 AM [facility] NON HDL CHOLESTEROL 91 <130 mg/dL (calc) 01/27/2025 4:07 AM [facility] Comment: For patients with diabetes plus 1 major ASCVD risk factor, treating to a non-HDL-C goal of <100 mg/dL (LDL-C of <70 mg/dL) is considered a therapeutic option. CHOL/HDLC RATIO 2.2 <5.0 (calc) 01/27/2025 4:07 AM [facility] LDL-CHOLESTEROL 61 mg/dL (calc) 01/27/2025 4:07 AM [facility] Comment: Reference range: <100 Desirable range <100 mg/dL for primary prevention; <70 mg/dL for patients with CHD or diabetic patients with > or = 2 CHD risk factors. LDL-C is now calculated using the Jaime-Trinity calculation, which is a validated novel method providing better accuracy than the Friedewald equation in the estimation of LDL-C. Jaime SS et al. MAURO. 2013;310(19): 9192-8369 (http://education.BillShrink.com/faq/CNU287) Blood BLOOD SPECIMEN / Unknown [facility] / Unknown 01/26/2025 2:26 PM CDT 01/26/2025 2:26 PM CDT us Shahana Ochoa DO CHEMISTRY Final Result [facility] [address] [place] [address], * ANTI HCV (05/23/2022 3:43 PM SANITARIAN) Pathologist [facility] HEPATITIS C ANTIBODY Non-React anmol Non-React anmol 05/25/2022 6:22 PM SANITARIAN [facility] Comment:Antibodies to HCV no t detected; does not exclude the possibility of exposure to HCV. Blood BLOOD SPECIMEN / Unknown Venipuncture / Unknown 05/23/2022 3:43 PM SANITARIAN 05/23/2022 3:46 PM SANITARIAN Pema [facility] S[employer] OUTS Final Resu lt [facility] [address] [place] [address], * ANTI HIV 1/2 (05/23/2022 3:43 PM SANITARIAN) Pathologist [facility] HIV-1/HIV-2 ANTIBODY Non-Reacti ve Non-Reacti ve 05/25/2022 6:22 PM SANITARIAN [facility] Comment:HIV-1 p24 and HIV-1/ HIV-2 Ab not detected. Blood BLOOD SPECIMEN / Unknown Venipuncture / Unknown 05/23/2022 3:43 PM SANITARIAN 05/23/2022 3:46 PM SANITARIAN Pema [employer] Final Resu lt Performing Organization Address City/[facility]/ZIP Co de Phone Number [facility] [address] [place] [address], from Last 3 Months or Most Recently Relevant to Health Maintenance Insurance [facility] Care Teams Bottler Helper Relationship Specialty Start Date End Date Shahana Ochoa DO [address] [place] [address] PCP - General Family Practice 08/29/23
--- OUTSIDE RECORDS SUMMARY | 2025-05-07 06:29 | XMS_ITS | Data Portability ---
Author Organization [place] [facility] Address [address] [facility] [address] [place] [address] Care Team Providers Care Director Oncology Name Role Phone SLIM GARCIA Primary Care Provider [phone] Assessment Encounter Date Assessment Date Assessment LastModified [...] patient to schedule 2024 025 [facility], [address] [place], [address], 5 04:42:56 US, kidney - Please call patient to schedule 2024 025 [facility], [address] [place], [address], 5 04:06:55 US, bladder - Please call patient to schedule 2024 025 [facility], [address] [place], [address], 5 04:06:55 Medication Orders tamsulosin 0.4 mg capsule 10/2024 [id number], [address], [place], [place], [phone], 18:26:50 Patient TargetsNo targets recorded. Patient InstructionsNo instructions recorded. Reason for Referral None Reported. Results Created Date Observation Date Name Description Value Unit Range Abnormal Flag Note LastModifiedBy Organization Detail LastModifiedTime 03/18/2003/18/2025 CT, abdom en + pelvi s, w/o contr ast No observ ation record ed. [email or web address] [facility] [address], [place], [address], 03/18/2025 14:35:20 Result Notes None recorded. Problems Name Problem SNOMED Code Status Onset Date Resolution Date Notes Provider Name and Address Organization Details Recorded Time Ureteric stone of lower third of ureter 998951201 Active Av Meeks MD [address] [place] [address],[address], [address] , [facility] 18:12:18 Problem Notes None recorded. Procedures Surgical History Date Name Laterality Status Provider Name and Address Organization Details Recorded Time COMPLEX VISIT completed Av Meeks MD [address] [place] [address],[address], [address], [facility] 03/18/2025 17:54:48 Imaging Results None recorded. [...] Updated DateTime 03/18/2025 182.88 cm 31.2 kg/m2 632936.25 g Odell miles MD, PHD [address] [place] [address], [phone] 03/18/2025 16:44:48 Social History Question Answer Notes LastModified by Organizat ion Details LastModified Time Tobacco Smoking Status Former Smoker Odell Parks MD, PHD [address] [place] [address], [phone], [facility] 03/18/2025 16:46:42 When Did You Quit Smoking? 1-5yearssin celastcigar ette 3 Weeks Information not available 03/18/2025 Sex: Unknown Functional Status Question Answer Note LastModified by Organization D etails LastModified Time What is your level of alcohol consumption? Moderate Information not available 03/18/2025 Mental Status None recorded. Family History Nothing Reported. Medical History Condition Response High Blood Pressure Y Kidney Stones Y Lung Disease Y Cancer N High Cholesterol Y Diabetes Y Immunizations Vaccine Type Date Status Note Provider Nam e and Address Organization Details Recorded Time Tdap 02/23/2012 completed Not Available [facility] 03/18/2025 16:23:45 Influenza, split virus, quadrivalent, PF 06/14/2020 completed Not Available [facility] 16:23:45 COVID-19, mRNA, LNP-S, PF, 30 mcg/0.3 mL dose 09/04/2020 completed Not Available [facility] 16:23:45 COVID-19, mRNA, LNP-S, PF, 30 mcg/0.3 mL dose 09/24/2020 completed Not Available [facility] 16:23:45 COVID-19, mRNA, LNP-S, PF, 30 mcg/0.3 mL dose 06/24/2021 completed Not Available [facility] 16:23:45 Tdap 02/03/2023 completed Not Available [facility] 03/18/2025 16:23:45 Past Encounters Encounter ID Performer Location Encounter Start Date Encounter Closed Date Diagnosis/Indication Diagnosis SNOMED-CT Code Diagnosis ICD10 Code Diagnosis IMO Codes Diagnosis Note [id number] Av Meeks MD [facility] [address] [place] [address] 03/18/2025 16:22:31 03/30/2025 17:00:46 Ureteric stone of lower third of ureter 583531997 N20.1 [id number] - Left distal 6mm stone- Stranding around [...] Barroso Member ID Guarantor Name 03/30/2025 1 [facility] Demarco Maria [id number] Demarco Maria 03/18/2025 1 [facility] [id number] Brunilda Maria [id number] Demarco Arambula Crow Notes Date Note Type Note [...] side. Denies F/C/N/V. Av Meeks MD [address] [facility],[address], [place], [address], [facility] 03/18/2025 18:34:13
--- NOTE | 2025-05-07 06:38 | ED.BACK ---
HPI - Back Pain/Injury General Time Seen by Provider: 06:38 Date Seen: 05/07/25 Chief Complaint: Back Injury/Pain Stated Complaint: Lower back pain Time Seen by Provider: 05/07/25 06:37 Source: patient Mode of arrival: ambulatory History of Present Illness HPI Narrative: Demarco is a 59 yo male with a past medical history of hypertension, hyperlipidemia, type 2 diabetes who presents emergency department for evaluation of low back pain. Patient complains of low back pain that started yesterday afternoon while at work. Patient denies any trauma or injury however reports that he suddenly sat up from a chair and developed severe pain. Patient describes the pain as intermittent severe sharp pain in his left mid low back. Patient reports pain is worse with moving and better with lying still. Patient denies any weakness, tingling, numbness, urinary or bowel incontinence/retention. Denies any fever, chills, chest pain, shortness of breath, abdominal pain. Patient reports that he did shovel snow on Sunday, and was seen in the emergency department on Sunday for right shoulder pain. Patient was treated with steroid taper as well as oxycodone. Patient has been taking his steroids as previously directed, and also took a dose of oxycodone this morning at 6:00 a.m.. Patient with severe pain so came in for further evaluation. Patient does have longstanding history of spinal complains however reports no history of low back pain. Patient follows with [facility] and has had MRIs in the past and is scheduled for an EMG on the . Related Data Home Medications ?Medication ?Instructions ?Recorded ?Confirmed amlodipine 10 mg tablet 10 mg PO DAILY 09/25/22 03/18/25 metoprolol succinate 50 mg 50 mg PO DAILY 09/25/22 03/18/25 tablet,extended release 24 hr rosuvastatin 20 mg tablet 20 mg PO QPM 02/06/23 03/18/25 aspirin 81 mg tablet,delayed 81 mg PO QDAY 04/13/23 03/18/25 release (Adult Low Dose Aspirin) Previous Rx's ?Medication ?Instructions ?Recorded hydroxyzine HCl 25 mg tablet 25 mg PO QID PRN itching #40 tabs 03/28/23 prednisone 10 mg tablet See Rx Instructions PO QDAY #30 04/13/23 tabs triamcinolone acetonide 0.1 % 1 applic topical BID #60 mL 04/13/23 lotion albuterol sulfate 90 mcg/actuation 2 puff inhalation QID PRN wheezing 08/10/23 aerosol inhaler #8.5 grams budesonide-formoterol HFA 160 2 puff inhalation DAILY #10.2 grams 08/10/23 mcg-4.5 mcg/actuation aerosol inhaler (Symbicort) montelukast 10 mg tablet 10 mg PO QHS #90 tabs 08/10/23 metformin 500 mg tablet,extended 1,000 mg (2 x 500 mg) PO QDAY #180 07/11/24 release 24 hr tabs Allergies Allergy/AdvReac Type Severity Reaction Status Date / Time No Known Drug Allergies Allergy Verified 05/07/25 06:47 Review of Systems Narrative: Past medical history, past surgical history, medications, allergies, family history, and social history were reviewed with the patient. No additional pertinent items. A medically appropriate review of systems was performed with pertinent positives and negatives noted in HPI, all other systems negative. [facility] Medical History (Updated 05/07/25 @ 07:00 by Анна Son MD) TIA (transient ischemic attack) ?G45.9 - Transient cerebral ischemic attack, unspecified (ICD-10) Type 2 diabetes mellitus, without long-term current use of insulin ?E11.9 - Type 2 diabetes mellitus without complications (ICD-10) Primary hypertension ?I10 - Essential (primary) hypertension (ICD-10) Mixed hyperlipidemia ?E78.2 - Mixed hyperlipidemia (ICD-10) Mild asthma without complication ?J45.909 - Unspecified asthma, uncomplicated (ICD-10) Surgical History (Updated 03/31/23 @ 21:27 by Aneudy Gentile MD) Fracture of ankle, lateral malleolus, left, closed (02/09/23) ?S82.62XA - Displaced fracture of lateral malleolus of left fibula, initial encounter for closed fracture (ICD-10) History of right hemicolectomy (03/17/12) ?Z90.49 - Acquired absence of other specified parts of digestive tract (ICD-10) Social History (Updated 05/04/25 @ 03:13 by Zan Flanagan MD) Narrative: , two kids, network firewall engineer, 1 ppd smoker, social ETOH What is your current living situation?: I presently have a place to live Problems where you live: no known problems Problems where you live details: n/a In the past 12 months, utilities in danger of being shut off: no In past 12 months, lack of transportation kept you from medical appts, meetings, work, or getting things needed for daily living: no In the past 12 mos, have been you worried that your food would run out before you had money to buy more?: never true In the past 12 mos, the food you bought just didn't last and you didn't have money to buy more?: never true Highest level of school completed/degree received: Associate degree: occupational, technical, vocational program Smoking Status: Former smoker What tobacco products do you use: cigarettes Smoking quit date/years: <= 15 years ago Do you use any of these nicotine containing products: None Second hand tobacco smoke exposure: No How often do you have a drink containing alcohol: 2-3 times a week Alcohol type: beer How many standard drinks containing alcohol do you have on a typical day: 3 or 4 How often do you have six or more drinks on one occasion: Monthly AUDIT-C Alcohol total score: 6 Non-prescribed substance use: denies use Caffeine: Yes How often does anyone, including family, friends and others, physically hurt you: never How often does anyone, including family, friends and others, insult or talk down to you: never How often does anyone, including family, friends and others, threaten you with harm: never How often does anyone, including family, friends and others, scream or curse at you: never service: No Exam Narrative: Exam Narrative: General: Afebrile, in distress secondary to pain HEENT: Normocephalic, atraumatic, conjunctiva normal. MMM Neck: non-tender, supple Cardio: regular rate. regular rhythm Resp: Normal work of breathing, no respiratory distress, lungs clear bilaterally, no wheezing, rhonchi, rales Chest/Back: no visual signs of trauma, no midline tenderness, no CVA tenderness, no specific tenderness to palpation however patient reports pain located in his left to mid lower lumbar region and is worse with any movement. Abdomen: soft, non distension, no tenderness, no peritoneal signs Neuro: alert and fully oriented. CN II-XII intact. Normal strength and sensation in all extremities. MSK: no deformities. Normal range of motion Integumentary/Skin: no rash visualized, normal color Psych: normal affect, normal behavior Const: Vital Signs, click to edit/add: Vital Signs - 24 hr 05/07/25 06:40 Temperature 97.3 F L Pulse Rate [Right Pulse Oximeter] 90 Respiratory Rate 18 Blood Pressure [Ri ght Upper Arm] 147/96 H Pulse Oximetry 96 Oxygen Delivery Me thod Room Air Course Vital Signs Vital signs: Initial Vital Signs Temperature 97.3 F L 05/07/25 06:40 Temperature Source Temporal Artery Scan 05/07/25 06:40 Pulse Rate 90 05/07/25 06:40 Pulse Rhythm Regular 05/07/25 06:40 Pulse Strength 3+ Normal 05/07/25 06:40 Respiratory Rate 18 05/07/25 06:40 Blood Pressure 147/96 H 05/07/25 06:40 Blood Pressure Mean 113 H 05/07/25 06:40 Blood Pressure Position Supine 05/07/25 06:40 Pulse Oximetry 96 05/07/25 06:40 Oxygen Delivery Method Room Air 05/07/25 06:40 Vital Signs Temperature 97.3 F L 05/07/25 06:40 Pulse Rate 90 05/07/25 06:40 Respiratory Rate 18 05/07/25 06:40 Blood Pressure 147/96 H 05/07/25 06:40 Pulse Oximetry 96 05/07/25 06:40 Oxygen Delivery Method Room Air 05/07/25 06:40 Temperature 97.3 F L 05/07/25 06:40 Pulse Rate 90 05/07/25 06:40 Respiratory Rate 18 05/07/25 06:40 Blood Pressure 147/96 H 05/07/25 06:40 Pulse Oximetry 96 05/07/25 06:40 Oxygen Delivery Method Room Air 05/07/25 06:40 Medications Administered Medications: Discontinued Medications Generic Name Dose Route Start Last Admin Trade Name Freq PRN Reason Stop Dose Admin Hydromorphone HCl 1 mg 05/07/25 06:59 05/07/25 07:14 Hydromorphone 0.5 Mg/0.5 Ml Inj IVP 05/07/25 07:00 1 mg ONCE ONE Administration Ketorolac Tromethamine 15 mg 05/07/25 06:59 05/07/25 07:14 Ketorolac 15 Mg/Ml Inj IVP 05/07/25 07:00 15 mg ONCE ONE Administration MDM - Back Pain/Injury MDM Narrative Medical decision making narrative: Demarco is a 59 yo male with a past medical history of hypertension, hyperlipidemia, type 2 diabetes who presents emergency department for evaluation of low back pain. Upon arrival patient is nontoxic appearing, afebrile, in distress secondary to pain at. Patient reports shoveling snow on Sunday but otherwise no specific trauma or injury. Patient with severe pain that is worse with movement. Denies any red flags, no fever, no weakness, no paresthesias, no urinary or bowel retention/incontinence. Patient currently on steroid taper for his shoulder, also took oxycodone around 6:00 a.m. this morning. Differential diagnosis includes but is not limited to lumbar strain, musculoskeletal versus pyelonephritis versus nephrolithiasis versus lumbar radiculopathy versus sacroiliitis among others. Patient was treated with IV Toradol, IV Dilaudid in the emergency department, will obtain urinalysis, CT imaging, and re-evaluate. Patient signed out to morning provider pending CT imaging, urinalysis, re-evaluation, final disposition. Differential Diagnosis Differential diagnosis: Likely lumbar radiculopathy, sciatica, strain of lumbar region, renal colic, pyelonephritis and thoracic back pain Medical Records Attestation: I reviewed the patient's medical records. Lab Data Attestation: I reviewed the patient's lab results. Discharge Plan Discharge Clinical Impression: Low back pain Prescriptions: No Action rosuvastatin 20 mg tablet 20 mg PO QPM aspirin [Adult Low Dose Aspirin] 81 mg tablet,delayed release (DR/EC) 81 mg PO QDAY prednisone 10 mg tablet See Rx Instructions PO QDAY Qty: 30 0RF Rx Instructions: 2 QD x 10 days then 1 QD x 10 days triamcinolone acetonide 0.1 % lotion 1 applic topical BID Qty: 60 1RF hydroxyzine HCl 25 mg tablet 25 mg PO QID PRN (Reason: itching) Qty: 40 0RF metoprolol succinate 50 mg tablet extended release 24 hr 50 mg PO DAILY amlodipine 10 mg tablet 10 mg PO DAILY montelukast 10 mg tablet 10 mg PO QHS Qty: 90 3RF budesonide-formoterol [Symbicort] 160-4.5 mcg/actuation HFA aerosol inhaler 2 puff inhalation DAILY Qty: 10.2 12RF albuterol sulfate 90 mcg/actuation HFA aerosol inhaler 2 puff inhalation QID PRN (Reason: wheezing) Qty: 8.5 12RF metformin 500 mg tablet extended release 24 hr 1,000 mg PO QDAY Qty: 180 0RF Follow Up/Referrals: Shahana Ochoa DO [Primary Care Provider, Family Practice]
[2025-05-07 06:40] VITALS: BP 147/96; PULSE 90; RESP 18; TEMP 36.3; O2SAT 96; BMI 35.9
--- NOTE | 2025-05-07 07:06 | CRLHL7_ITS ---
For Patients: As a result of the Century Cures Act, medical imaging exams and procedure reports are released immediately into your electronic medical record. You may view this report before your referring provider. If you have questions, please contact your health care provider. Indication: Low back pain. Technique: CT of the lumbar spine was performed without intravenous contrast. Comparison: CT abdomen/pelvis 03/18/2025. Findings: There are 5 lumbar-type vertebral segments are identified. The vertebral body heights appear maintained without fracture. No significant spondylolisthesis. T12-L1: No spinal canal or neural foraminal stenosis. L1-2: No spinal canal or neural foraminal stenosis. L2-3: Disc degeneration. No spinal canal narrowing. Shallow left foraminal disc protrusion without neural foraminal narrowing. L3-4: Disc bulge results in mild spinal canal narrowing. Mild right neural foraminal narrowing. L4-5: Disc degeneration. Disc bulge with minimal spinal canal narrowing. Mild neural foraminal narrowing. L5-S1: No spinal canal or neural foraminal stenosis. Atherosclerotic disease with ectasia of the infrarenal abdominal aorta. Impression: 1. No acute osseous injury. 2. Mild lumbar spondylosis. Please note that all CT scans at this facility use dose modulation, iterative reconstruction, and/or weight-based dosing when appropriate to reduce radiation dose to as low as reasonably achievable. Dictated by Frank Kumar MD @ 05/07/2025 12:49:44 PM (Electronically Signed)
[2025-05-07 09:11] LABS: Appearance Urine Clear (Clear)
[2025-05-07 09:15] VITALS: BP 132/85; PULSE 57; RESP 16; O2SAT 92
[2025-05-07 10:45] VITALS: RESP 16; O2SAT 93
[2025-05-07] MEDS: diazePAM 5 MG/ML inj IV (11:01)
[2025-05-07 11:10] VITALS: RESP 10; O2SAT 86
[2025-05-07 11:11] VITALS: RESP 10; O2SAT 93
[2025-05-07 11:45] VITALS: BP 145/86; RESP 12; O2SAT 94
== END 2025-05-07 12:20 | disposition home or self-care (01) ==
PROVIDERS: Emergency Medicine; Emergency Provider Emergency Medicine; PCP Family Medicine
DX: M54.50 Low back pain, unspecified (principal)
CPT/HCPCS: 72131; 81001; 96374; 96375; 99284; 99285; J1171; J1885; J3360